=== PATIENT | female | born 1960 | race African-American/Black ===

== ENCOUNTER 2017-06-03 15:34 | Emergency (ER) | payer BC ==
[2017-06-03] MEDS ORDERED: NORMAL SALINE 1000 ML 1,000 ML IV ONE (16:49)
--- NOTE | 2017-06-03 16:50 | ER Document Report ---
ED Medical Screen (RME) - General Chief Complaint: Dizziness Stated Complaint: DIZZINESS Time Seen by Provider: 06/03/17 16:49 Notes: Patient lightheaded dizzy and nauseous since yesterday. TRAVEL OUTSIDE OF THE [place] IN LAST 30 DAYS: No - Related Data Allergies/Adverse Reactions: hydrocodone bitartrate [From Vicodin] Adverse Reaction (Verified 06/03/17 15:35) Vomiting Past Medical History - Past Medical History Cardiac Medical History: Reports: Hx Hypertension Pulmonary Medical History: Reports: Hx Bronchitis Psychiatric Medical History: Reports: Hx Depression Past Surgical History: Reports: Hx Gynecologic Surgery - tubes tied, Hx Tonsillectomy - Immunizations Hx Diphtheria, Pertussis, Tetanus Vaccination: Yes Physical Exam - Vital signs Vitals: Temp Pulse Resp BP Pulse Ox 98.2 F 91 17 104/69 98 06/03/17 15:48 06/03/17 15:48 06/03/17 15:48 06/03/17 15:48 06/03/17 15:48 Course - Vital Signs Vital signs: Temp Pulse Resp BP Pulse Ox 98.2 F 91 17 104/69 98 06/03/17 15:48 06/03/17 15:48 06/03/17 15:48 06/03/17 15:48 06/03/17 15:48
[2017-06-03 17:53] LABS: ABSOLUTE BASOPHILS # (AUTO) 0.1 10^3/uL (0.0-0.2); ABSOLUTE EOSINOPHILS # (AUTO) 0.1 10^3/uL (0.0-0.6); ABSOLUTE LYMPHOCYTES (AUTO) 3.1 10^3/uL (0.5-4.7); ABSOLUTE MONOCYTES (AUTO) 0.5 10^3/uL (0.1-1.4); ABSOLUTE NEUT (AUTO) 4.8 10^3/uL (1.7-8.2); BASOPHILS % (AUTO) 0.7 % (0-2); EOSINOPHILS % (AUTO) 1.1 % (0-6); HEMATOCRIT 43.8 % (36.0-47.0); HEMOGLOBIN 14.5 g/dL (12.0-15.5); LYMPHOCYTES % (AUTO) 36.3 % (13-45); MEAN CORPUSCULAR HEMOGLOBIN 29.5 pg (27.0-33.4); MEAN CORPUSCULAR HGB CONC 33.1 g/dL (32.0-36.0); MEAN CORPUSCULAR VOLUME 89 fl (80-97); MONOCYTES % (AUTO) 6.2 % (3-13); PLATELET COUNT 273 10^3/uL (150-450); RED BLOOD COUNT 4.91 10^6/uL (3.72-5.28); RED CELL DISTRIBUTION WIDTH 13.1 % (11.5-14.0); SEGMENTED NEUTROPHILS % (AUTO) 55.7 % (42-78); TOTAL CELLS COUNTED % (AUTO) 100 %; WHITE BLOOD COUNT 8.6 10^3/uL (4.0-10.5)
[2017-06-03] MEDS ORDERED: MECLIZINE HCL 25 MG TABLET PO ONE (19:48)
[2017-06-03] MEDS ORDERED: ONDANSETRON HCL INJ/PF 4 MG/2 ML SDV IV ONE (19:48)
--- NOTE | 2017-06-03 19:51 | ER Document Report ---
ED General - General Chief Complaint: Dizziness Stated Complaint: DIZZINESS Time Seen by Provider: 06/03/17 16:49 Notes: Patient is a 56-year-old female comes emergency department for chief complaint of a spinning sensation when she closes her eyes, she feels dizzy and gets the same spinning sensation when she sits up or stands up, she is intermittently nauseated, she vomited from it yesterday. Symptoms have been going on for 2 days. She denies headache, fever or chills, recent head injury, recent illness although she states her allergies have been bad lately. Only past medical history is hypertension, she is medicated for this. TRAVEL OUTSIDE OF THE [place] IN LAST 30 DAYS: No - Related Data Allergies/Adverse Reactions: hydrocodone bitartrate [From Vicodin] Adverse Reaction (Verified 06/03/17 15:35) Vomiting Past Medical History - General Information source: Patient - Social History Smoking Status: Never Smoker Frequency of alcohol use: None Drug Abuse: None Lives with: Family Family History: Reviewed & Not Pertinent - Past Medical History Cardiac Medical History: Reports: Hx Hypertension Pulmonary Medical History: Reports: Hx Bronchitis Psychiatric Medical History: Reports: Hx Depression Past Surgical History: Reports: Hx Gynecologic Surgery - tubes tied, Hx Tonsillectomy - Immunizations Hx Diphtheria, Pertussis, Tetanus Vaccination: Yes Review of Systems - Review of Systems Constitutional: See HPI EENT: No symptoms reported Cardiovascular: See HPI Respiratory: No symptoms reported Gastrointestinal: No symptoms reported Genitourinary: No symptoms reported Female Genitourinary: No symptoms reported Musculoskeletal: No symptoms reported Skin: No symptoms reported Hematologic/Lymphatic: No symptoms reported Neurological/Psychological: See HPI Physical Exam - Vital signs Vitals: Temp Pulse Resp BP Pulse Ox 98.2 F 91 17 104/69 98 06/03/17 15:48 06/03/17 15:48 06/03/17 15:48 06/03/17 15:48 06/03/17 15:48 Interpretation: Normal - General General appearance: Appears well, Alert In distress: None - HEENT Head: Normocephalic, Atraumatic Eyes: Normal Conjunctiva: Normal Extraocular movements intact: Yes Eyelashes: Normal Pupils: PERRL - minimal horizontal nystagmus Sinus: Normal Nasal: Normal Mouth/Lips: Normal Mucous membranes: Normal Pharynx: Normal Neck: Normal - Respiratory Respiratory status: No respiratory distress Chest status: Nontender Breath sounds: Normal. No: Decreased air movement, Wheezing - Cardiovascular Rhythm: Regular. No: Tachycardia Heart sounds: Normal auscultation, S1 appreciated, S2 appreciated Murmur: No - Abdominal Inspection: Normal Distension: No distension Bowel sounds: Normal Tenderness: Nontender Organomegaly: No organomegaly - Back Back: Normal, Nontender - Extremities General upper extremity: Normal inspection, Nontender, Normal color, Normal ROM , Normal temperature General lower extremity: Normal inspection, Nontender, Normal color, Normal ROM , Normal temperature, Normal weight bearing. No: Dequan's sign - Neurological Neuro grossly intact: Yes Cognition: Normal Orientation: AAOx4 [place] Coma Scale Eye Opening: Spontaneous [place] Coma Scale Verbal: Oriented [place] Coma Scale Motor: Obeys Commands [place] Coma Scale Total: 15 Speech: Normal Motor strength normal: LUE, RUE, LLE, RLE Sensory: Normal - Psychological Associated symptoms: Normal affect, Normal mood - Skin Skin Temperature: Warm Skin Moisture: Dry Skin Color: Normal Course - Re-evaluation Re-evalutation: On initial exam patient is well-appearing, if she makes position change she has clear imbalance and discomfort. However she can walk in a straight line without difficulty. Normal neurological exam otherwise. Minimal horizontal nystagmus. CBC and chemistry unremarkable. After meclizine, Zofran patient's symptoms almost completely resolved. She still gets a tiny bit of spinning sensation with position changes, she no longer has spinning or nausea when she closes her eyes or otherwise. She smiling, well-appearing, ambulating well. She is asking to go home. Prescribed medications, discussed follow-up and return precautions, patient states understanding and agreement. - Vital Signs Vital signs: Temp Pulse Resp BP Pulse Ox 98.6 F 67 18 124/64 100 06/03/17 22:27 06/03/17 22:27 06/03/17 22:27 06/03/17 22:27 06/03/17 22:27 - Laboratory Result Diagrams: 06/03/17 17:30 06/03/17 19:50 Laboratory results interpreted by me: 06/03/17 19:50 Chloride 108 H Discharge - Discharge Clinical Impression: Dizziness, Vertigo Condition: Stable Disposition: HOME, SELF-CARE Additional Instructions: Your EKG, laboratory workup, and monitoring show no concerning abnormality's. Your symptoms and evaluation are consistent with vertigo, take the meclizine as prescribed. Take Zofran if needed for nausea. Follow-up with primary care. Return for any concerning worsening symptoms, see additional details below. Labyrinthitis Labyrinthitis is a temporary disease of the inner ear. It's sometimes called vestibulitis. It often starts a few days after a cold or virus infection. Symptoms include vertigo (the spinning type of dizziness) or a sense of unsteadiness and nausea. The symptoms usually go away in a couple of days without any treatment. You should rest and keep your head still. The dizziness is worse if you move your head. Closing the eyes usually helps. Don't drive, work with dangerous machinery, or get up on ladders or scaffolds until a few days after the dizziness resolves. Medicine such as meclizine (Antivert, Bonine) can reduce the dizziness and nausea. Tranquilizers (such as diazepam) can suppress your sense of balance, reducing the unpleasantness of the vertigo. Call or return if you develop ear pain, loss of hearing, fever, severe vomiting, or any other new symptom. Prescriptions: Meclizine HCl [Bonine] 25 mg PO TID #24 tab.chew Ondansetron [Zofran Odt 4 mg Tablet] 1 - 2 tab PO Q4H PRN #15 tab.rapdis PRN Reason: For Nausea/Vomiting Referrals: KELSIE ALDANA MD [Primary Care Provider] - Follow up as needed
[2017-06-03 20:15] LABS: ALANINE AMINOTRANSFERASE 24 U/L (9-52); ALBUMIN 4.1 g/dL (3.5-5.0); ALKALINE PHOSPHATASE 65 U/L (38-126); ANION GAP 8 (5-19); ASPARTATE AMINO TRANSFERASE 23 U/L (14-36); BILIRUBIN,DIRECT 0.3 mg/dL (0.0-0.4); BILIRUBIN,TOTAL 0.4 mg/dL (0.2-1.3); BLOOD UREA NITROGEN 16 mg/dL (7-20); CALCIUM 10.2 mg/dL (8.4-10.2); CARBON DIOXIDE 25 mmol/L (22-30); CHLORIDE 108 mmol/L (98-107); GLUCOSE 86 mg/dL (75-110); POTASSIUM 4.6 mmol/L (3.6-5.0); SODIUM 140.7 mmol/L (137-145)
[2017-06-03] MEDS ORDERED: ONDANSETRON ODT 4 MG TAB (6 TAB/ER DISP) PO PRN (21:17)
[2017-06-03 22:28] VITALS: BP 124/64
--- NOTE | 2017-06-04 12:04 | EKG REPORT ---
SEVERITY:- NORMAL ECG - SINUS RHYTHM : Confirmed by: Eugene Chavis 04-Jun-2017 12:04:28
== END 2017-06-03 22:28 | disposition home or self-care (01) ==
LOC: ER 15:34
DX: R42 Dizziness and giddiness (principal)
CPT/HCPCS: 93005; 99284; 96361; 96374; 36415; 85025; 80053; 93010; J2405; J7030

== ENCOUNTER 2017-09-20 21:27 | Emergency (ER) | payer BC ==
[2017-09-20] MEDS ORDERED: IPRATROPIUM/ALBUTEROL 0.5-2.5 MG/3 ML AMPUL NEB ONE (22:09)
[2017-09-20] MEDS ORDERED: METHYLPREDNISOLONE INJ 125 MG/2 ML SDV IV ONE (22:09)
[2017-09-20] MEDS ORDERED: ONDANSETRON HCL INJ/PF 4 MG/2 ML SDV IV ONE (22:10)
[2017-09-20] MEDS ORDERED: OXYCODONE-ACETAMINOPHEN 5-325 MG TABLET PO ONE (22:10)
--- NOTE | 2017-09-20 22:13 | ER Document Report ---
ED Respiratory Problem - General Chief Complaint: Shortness Of Breath Stated Complaint: SHORT OF BREATH Time Seen by Provider: 09/20/17 22:00 Notes: Patient is a 57-year-old female that comes emergency department for chief complaint of shortness of breath, productive cough, and congestion for the past several days. Seen 2 days ago by primary care, placed on azithromycin and prednisone 40 mg, she has been taking both. She does smoke. She reports chills , denies fever, states she has occasional sharp left-sided chest pain that is worse with cough, feels pain in her mid upper back as well. She has a history of hypertension, tubal ligation, denies any other medical history. TRAVEL OUTSIDE OF THE [place] IN LAST 30 DAYS: No - Related Data Allergies/Adverse Reactions: amoxicillin Allergy (Verified 09/20/17 21:33) hydrocodone bitartrate [From Vicodin] Adverse Reaction (Verified 06/03/17 15:35) Vomiting Past Medical History - General Information source: Patient - Social History Smoking Status: Current Every Day Smoker Smoking Education Provided: Yes - <3 min Frequency of alcohol use: None Drug Abuse: None Lives with: Family Family History: Reviewed & Not Pertinent - Past Medical History Cardiac Medical History: Reports: Hx Hypertension Pulmonary Medical History: Reports: Hx Bronchitis Renal/ Medical History: Denies: Hx Peritoneal Dialysis Psychiatric Medical History: Reports: Hx Depression Past Surgical History: Reports: Hx Gynecologic Surgery - tubes tied, Hx Tonsillectomy - Immunizations Hx Diphtheria, Pertussis, Tetanus Vaccination: Yes Review of Systems - Review of Systems Constitutional: See HPI EENT: See HPI Cardiovascular: See HPI Respiratory: See HPI Gastrointestinal: No symptoms reported Genitourinary: No symptoms reported Female Genitourinary: No symptoms reported Musculoskeletal: See HPI Skin: No symptoms reported Hematologic/Lymphatic: No symptoms reported Neurological/Psychological: No symptoms reported Physical Exam - Vital signs Vitals: BP Pulse Ox 130/89 H 97 09/20/17 21:49 09/20/17 21:49 Interpretation: Normal - General General appearance: Appears well In distress: None - HEENT Head: Normocephalic, Atraumatic Eyes: Normal Extraocular movements intact: Yes Eyelashes: Normal Pupils: PERRL Mouth/Lips: Normal Mucous membranes: Normal Pharynx: Normal Neck: Normal - Respiratory Respiratory status: No respiratory distress. No: Respiratory distress, Labored , Retractions, Tachypnea Chest status: Nontender Breath sounds: Nonproductive cough, Wheezing Chest palpation: Normal - Cardiovascular Rhythm: Regular Heart sounds: Normal auscultation Murmur: No - Abdominal Inspection: Normal Distension: No distension Bowel sounds: Normal Tenderness: Nontender. No: Tender, Guarding Organomegaly: No organomegaly - Back Back: Normal, Nontender - Extremities General upper extremity: Normal inspection, Nontender, Normal color, Normal ROM , Normal temperature General lower extremity: Normal inspection, Nontender, Normal color, Normal ROM , Normal temperature, Normal weight bearing. No: Dequan's sign - Neurological Neuro grossly intact: Yes Cognition: Normal Orientation: AAOx4 [place] Coma Scale Eye Opening: Spontaneous Clay Coma Scale Verbal: Oriented [place] Coma Scale Motor: Obeys Commands [place] Coma Scale Total: 15 Speech: Normal Motor strength normal: LUE, RUE, LLE, RLE Sensory: Normal - Psychological Associated symptoms: Normal affect, Normal mood - Skin Skin Temperature: Warm Skin Moisture: Dry Skin Color: Normal Course - Re-evaluation Re-evalutation: Patient with a few scattered rhonchi, coarse breath sounds, and a faint wheeze. She also sounds congested. No tachypnea, hypoxia, or signs of distress. EKG shows sinus rhythm at a rate of 98, borderline Q-wave inferiorly, however this is not changed from prior. No acute findings. Appears to be pleuritic chest pain related to cough. Indeterminate initial troponin, this was cycled and there was no significant change. Chest x-ray with no noted infiltrate although patient's coughing symptoms and sputum production have worsened. After treatments wheezing resolved, patient improved on examination. Patient has already had a couple of days of steroids, low-dose, no taper, patient will be given a slight increase and then taper after discussion because she has been on prednisone for a few days already. Provided symptom management, discussed antibiotic change for better coverage, patient requests Diflucan because of yeast infections after antibiotics. Patient was discussed with Dr. Mercado, patient will be discharged with follow- up instructions and return precautions. Patient and family state understanding and agreement with plan. - Vital Signs Vital signs: Temp Pulse Resp BP Pulse Ox 98.0 F 82 20 115/67 96 09/21/17 02:45 09/21/17 02:45 09/21/17 02:45 09/21/17 02:45 09/21/17 02:45 - Laboratory Result Diagrams: 09/20/17 22:33 09/21/17 00:30 Laboratory results interpreted by me: 09/20/17 09/21/17 22:33 00:30 WBC 11.3 H Sodium 148.8 H Chloride 108 H Discharge - Discharge Clinical Impression: Productive cough, Wheezing Chest pain Qualifiers: Chest pain type: unspecified Qualified Code(s): R07.9 - Chest pain, unspecified Condition: Stable Disposition: HOME, SELF-CARE Additional Instructions: Your examination and workup are consistent with bronchitis and suspected early developing underlying pneumonia. You have been started on doxycycline for this. Stop the azithromycin. I recommend taking the prednisone taper course as prescribed. Use the syrup for cough/pain if needed. Use your inhaler if needed. Your troponin was indeterminate today, this was double checked and still indeterminate. Follow-up with primary care for additional evaluation and management. Return for any concerning symptoms including spiking fever, difficulty breathing , vomiting, passing out, worsening pain, or any other concerning or worsening symptoms. Prescriptions: Hydrocodone Bit/Homatropine [Hycodan Syrup 5-1.5 mg/5 ml Ud Cup] 5 ml PO Q4HP PRN #120 ml PRN Reason: Doxycycline Hyclate 100 mg PO BID #14 capsule Fluconazole [Diflucan] 150 mg PO ONCE PRN #1 tablet PRN Reason: Prednisone [Deltasone 10 mg Tablet] 10 mg PO ASDIR PRN #21 tablet PRN Reason: Forms: Return to Work
[2017-09-20 22:46] LABS: ABSOLUTE BASOPHILS # (AUTO) 0.1 10^3/uL (0.0-0.2); ABSOLUTE EOSINOPHILS # (AUTO) 0.1 10^3/uL (0.0-0.6); ABSOLUTE LYMPHOCYTES (AUTO) 4.2 10^3/uL (0.5-4.7); ABSOLUTE MONOCYTES (AUTO) 0.6 10^3/uL (0.1-1.4); ABSOLUTE NEUT (AUTO) 6.3 10^3/uL (1.7-8.2); BASOPHILS % (AUTO) 0.5 % (0-2); EOSINOPHILS % (AUTO) 1.2 % (0-6); HEMATOCRIT 41.8 % (36.0-47.0); HEMOGLOBIN 13.8 g/dL (12.0-15.5); LYMPHOCYTES % (AUTO) 37.3 % (13-45); MEAN CORPUSCULAR HEMOGLOBIN 29.3 pg (27.0-33.4); MEAN CORPUSCULAR HGB CONC 33.1 g/dL (32.0-36.0); MEAN CORPUSCULAR VOLUME 89 fl (80-97); MONOCYTES % (AUTO) 5.3 % (3-13); PLATELET COUNT 327 10^3/uL (150-450); RED BLOOD COUNT 4.73 10^6/uL (3.72-5.28); RED CELL DISTRIBUTION WIDTH 13.2 % (11.5-14.0); SEGMENTED NEUTROPHILS % (AUTO) 55.7 % (42-78); TOTAL CELLS COUNTED % (AUTO) 100 %; WHITE BLOOD COUNT 11.3 10^3/uL (4.0-10.5)
[2017-09-21 01:03] LABS: ALANINE AMINOTRANSFERASE 37 U/L (9-52); ALBUMIN 3.9 g/dL (3.5-5.0); ALKALINE PHOSPHATASE 66 U/L (38-126); ANION GAP 14 (5-19); ASPARTATE AMINO TRANSFERASE 26 U/L (14-36); BILIRUBIN,DIRECT 0.2 mg/dL (0.0-0.4); BILIRUBIN,TOTAL 0.2 mg/dL (0.2-1.3); BLOOD UREA NITROGEN 20 mg/dL (7-20); CALCIUM 10.1 mg/dL (8.4-10.2); CARBON DIOXIDE 27 mmol/L (22-30); CHLORIDE 108 mmol/L (98-107); GLUCOSE 105 mg/dL (75-110); POTASSIUM 3.9 mmol/L (3.6-5.0); SODIUM 148.8 mmol/L (137-145); TOTAL PROTEIN 6.9 g/dL (6.3-8.2)
--- NOTE | 2017-09-21 02:20 | RADIOLOGY REPORT (SQ) ---
EXAM DESCRIPTION: Chest two views CLINICAL HISTORY: 57 years, Female, productive cough, chills COMPARISON: None. NUMBER OF VIEWS: Two TECHNIQUE: Two views of the chest LIMITATIONS: None. FINDINGS: The lungs are clear. The heart is normal in size. There is no pneumothorax or pleural effusion. There is no acute fracture IMPRESSION: No acute cardiopulmonary abnormality 2010 [facility] [employer]- All Rights Reserved
[2017-09-21] MEDS ORDERED: DOXYCYCLINE HYCLATE 100 MG TABLET PO ONE (02:31)
[2017-09-21 02:46] VITALS: BP 115/67
--- NOTE | 2017-09-21 06:07 | EKG REPORT ---
SEVERITY:- BORDERLINE ECG - SINUS RHYTHM BORDERLINE INFERIOR Q WAVES : Confirmed by: Denys Perez MD 21-Sep-2017 06:06:09
== END 2017-09-21 02:49 | disposition home or self-care (01) ==
LOC: ER 21:27
DX: R05 Cough (principal); R06.2 Wheezing; R06.02 Shortness of breath; F17.200 Nicotine dependence, unspecified, uncomplicated; I10 Essential (primary) hypertension; Z88.0 Allergy status to penicillin; Z98.51 Tubal ligation status
CPT/HCPCS: 93005; 94640; 99285; 96374; 96375; 36415; 85025; 80053; 84484; 71046; 93010; J2930; J2405; J7620

== ENCOUNTER 2018-02-07 18:03 | Inpatient (IN) | payer BC ==
[2018-02-07] MEDS ORDERED: IPRATROPIUM/ALBUTEROL 0.5-2.5 MG/3 ML AMPUL NEB ONE ×2 (18:19→20:15)
--- NOTE | 2018-02-07 18:21 | ER Document Report ---
ED Medical Screen (RME) - General Chief Complaint: Breathing Difficulty Stated Complaint: DIFFICULTY BREATHING Time Seen by Provider: 02/07/18 18:16 Mode of Arrival: Ambulatory Information source: Patient Notes: 57-year-old female with a history of hypertension who presents to the emergency room with productive cough, shortness of breath, wheezing and chills since last night. TRAVEL OUTSIDE OF THE [place] IN LAST 30 DAYS: No - Related Data Allergies/Adverse Reactions: amoxicillin Allergy (Verified 02/07/18 18:06) hydrocodone bitartrate [From Vicodin] Adverse Reaction (Verified 02/07/18 18:06) Vomiting Past Medical History - Past Medical History Cardiac Medical History: Reports: Hx Hypertension Pulmonary Medical History: Reports: Hx Bronchitis Renal/ Medical History: Denies: Hx Peritoneal Dialysis Psychiatric Medical History: Reports: Hx Depression Past Surgical History: Reports: Hx Gynecologic Surgery - tubes tied, Hx Tonsillectomy, Hx Tubal Ligation - Immunizations Hx Diphtheria, Pertussis, Tetanus Vaccination: Yes Physical Exam - Vital signs Vitals: Temp Pulse Resp BP Pulse Ox 99.7 F 116 H 22 H 155/82 H 90 L 02/07/18 18:08 02/07/18 18:08 02/07/18 18:08 02/07/18 18:08 02/07/18 18:08 Course - Vital Signs Vital signs: Temp Pulse Resp BP Pulse Ox 99.7 F 116 H 22 H 155/82 H 90 L 02/07/18 18:08 02/07/18 18:08 02/07/18 18:08 02/07/18 18:08 02/07/18 18:08 Doctor's Discharge - Discharge Referrals: KELSIE ALDANA MD [Primary Care Provider] - Follow up as needed
[2018-02-07] MEDS ORDERED: METHYLPREDNISOLONE INJ 125 MG/2 ML SDV IV ONE (18:49)
[2018-02-07 19:00] LABS: ABSOLUTE LYMPHOCYTES (AUTO) 1.4 10^3/uL (0.5-4.7); ABSOLUTE MONOCYTES (AUTO) 0.7 10^3/uL (0.1-1.4); ABSOLUTE NEUT (AUTO) 11.4 10^3/uL (1.7-8.2); BASOPHILS % (AUTO) 0.3 % (0-2); EOSINOPHILS % (AUTO) 0.1 % (0-6); HEMATOCRIT 39.1 % (36.0-47.0); HEMOGLOBIN 13.1 g/dL (12.0-15.5); LYMPHOCYTES % (AUTO) 10.2 % (13-45); MEAN CORPUSCULAR HEMOGLOBIN 29.5 pg (27.0-33.4); MEAN CORPUSCULAR HGB CONC 33.5 g/dL (32.0-36.0); MEAN CORPUSCULAR VOLUME 88 fl (80-97); MONOCYTES % (AUTO) 5.3 % (3-13); PLATELET COUNT 259 10^3/uL (150-450); RED BLOOD COUNT 4.44 10^6/uL (3.72-5.28); RED CELL DISTRIBUTION WIDTH 13.2 % (11.5-14.0); SEGMENTED NEUTROPHILS % (AUTO) 84.1 % (42-78); TOTAL CELLS COUNTED % (AUTO) 100 %; WHITE BLOOD COUNT 13.6 10^3/uL (4.0-10.5)
[2018-02-07] MEDS ORDERED: LEVOFLOXACIN 750 MG/D5W RTU 750 MG/150 ML RTUPB IV ONE (19:03)
[2018-02-07] MEDS ORDERED: RINGERS SOLUTION,LACTATED 1,000 ML IV ONE (19:03)
--- NOTE | 2018-02-07 19:04 | ER Document Report ---
ED General - General Chief Complaint: Breathing Difficulty Stated Complaint: DIFFICULTY BREATHING Time Seen by Provider: 02/07/18 18:16 Mode of Arrival: Ambulatory Notes: Patient is a 57-year-old female with a past medical history of essential hypertension who presents with 24 hours of fever, cough, shortness of breath and body aches. The patient reports that symptoms started gradually and have been constant since that time. She has tried Tylenol with improvement of her symptoms. She does note however that this has not affected her shortness of breath. She describes shortness of breath being constant, worsened with exertion. She has had cough without sputum production. No history of similar symptoms in the past. She has not seen her general doctor regarding today's concerns. No known sick contacts. TRAVEL OUTSIDE OF THE [place] IN LAST 30 DAYS: No - Related Data Allergies/Adverse Reactions: amoxicillin Allergy (Verified 02/07/18 18:06) hydrocodone bitartrate [From Vicodin] Adverse Reaction (Verified 02/07/18 18:06) Vomiting Past Medical History - General Information source: Patient - Social History Smoking Status: Current Every Day Smoker Frequency of alcohol use: None Drug Abuse: None Lives with: Spouse/Significant other Family History: Reviewed & Not Pertinent Patient has suicidal ideation: No Patient has homicidal ideation: No - Past Medical History Cardiac Medical History: Reports: Hx Hypertension Pulmonary Medical History: Reports: Hx Bronchitis Renal/ Medical History: Denies: Hx Peritoneal Dialysis Psychiatric Medical History: Reports: Hx Depression Past Surgical History: Reports: Hx Gynecologic Surgery - tubes tied, Hx Tonsillectomy, Hx Tubal Ligation - Immunizations Hx Diphtheria, Pertussis, Tetanus Vaccination: Yes Review of Systems - Review of Systems Notes: Constitutional: Positive for fever. HENT: Negative for sore throat. Eyes: Negative for visual changes. Cardiovascular: Negative for chest pain. Respiratory: Positive for shortness of breath and cough Gastrointestinal: Negative for abdominal pain, vomiting or diarrhea. Genitourinary: Negative for dysuria. Musculoskeletal: Negative for back pain. Skin: Negative for rash. Neurological: Negative for headaches, weakness or numbness. 10 point ROS negative except as marked above and in HPI. Physical Exam - Vital signs Vitals: Temp Pulse Resp BP Pulse Ox 99.7 F 116 H 22 H 155/82 H 90 L 02/07/18 18:08 02/07/18 18:08 02/07/18 18:08 02/07/18 18:08 02/07/18 18:08 Interpretation: Tachycardic, Hypoxic, Tachypneic Notes: PHYSICAL EXAMINATION: GENERAL: Appears moderately unwell but in no acute distress HEAD: Atraumatic, normocephalic. EYES: Pupils equal round and reactive to light, extraocular movements intact, sclera anicteric, conjunctiva are normal. ENT: nares patent, oropharynx clear without exudates. Mild dry mucous membranes. NECK: Normal range of motion, supple without lymphadenopathy LUNGS: Coarse breath sounds in all lung [place], scattered rales at the bases bilaterally HEART: Regular tachycardia without murmurs ABDOMEN: Soft, nontender, normoactive bowel sounds. No guarding, no rebound. No masses appreciated. EXTREMITIES: Normal range of motion, no pitting or edema. No cyanosis. NEUROLOGICAL: No focal neurological deficits. Moves all extremities spontaneously and on command. PSYCH: Normal mood, normal affect. SKIN: Warm, Dry, normal turgor, no rashes or lesions noted. Course - Re-evaluation Re-evalutation: 02/07/18 19:03 Patient presents mildly tachypneic, hypoxic, rattling cough. Examination shows scattered coarse breath sounds and rhonchi throughout. Patient has had fever and constitutional symptoms at home worrisome for a atypical community-acquired pneumonia. Chest x-ray appears to show a similar pattern. Labs are pending. Will begin IV fluids, nebs, levofloxacin. Low clinical suspicion for an acute pulmonary embolus, pulmonary edema. 02/07/18 20:25 Patient's work of breathing does remain moderately elevated although without distress. Labs show moderate leukocyte ptosis, otherwise unremarkable. I have discussed this case with Dr. Calabrese given the patient's oxygen dependence and he has a sensation for admission. - Vital Signs Vital signs: Temp Pulse Resp BP Pulse Ox 99.7 F 86 18 125/77 94 02/07/18 18:08 02/08/18 02:08 02/08/18 02:00 02/08/18 02:00 02/08/18 02:00 - Laboratory Result Diagrams: 02/07/18 18:50 02/07/18 18:50 Laboratory results interpreted by me: 02/07/18 02/07/18 02/07/18 18:50 18:50 20:02 WBC 13.6 H Seg Neutrophils % 84.1 H Lymphocytes % 10.2 L Absolute Neutrophils 11.4 H Lactic Acid 2.4 H Calcium 10.4 H - Diagnostic Test Radiology reviewed: Image reviewed, Reports reviewed Radiology results interpreted by me: 02/07/18 20:25 Chest x-ray: Patchy infiltrates at the bases bilaterally consistent with an atypical community acquired pneumonia Discharge - Discharge Clinical Impression: Hypoxia, Atypical pneumonia Sepsis Qualifiers: Sepsis type: sepsis due to unspecified organism Qualified Code(s): A41.9 - Sepsis, unspecified organism Condition: Fair Disposition: ADMITTED INPATIENT Admitting Provider: Hospitalist Unit Admitted: Telemetry
--- NOTE | 2018-02-07 19:19 | RADIOLOGY REPORT (SQ) ---
EXAM DESCRIPTION: CHEST 2 VIEWS COMPLETED DATE/TIME: 02/07/2018 7:00 pm REASON FOR STUDY: productive cough COMPARISON: 09/20/2017 TECHNIQUE: Frontal and lateral radiographic views of the chest acquired. NUMBER OF VIEWS: Two view. LIMITATIONS: None. FINDINGS: LUNGS AND PLEURA: No pneumothorax. No consolidation or pleural effusion. MEDIASTINUM AND HILAR STRUCTURES: Stable. HEART AND VASCULAR STRUCTURES: Stable. BONES: No acute findings. HARDWARE: None in the chest. OTHER: No other significant finding. IMPRESSION: NO ACUTE FINDINGS. TECHNICAL DOCUMENTATION: JOB ID: [id number] [place]-72 2010 [employer]- All Rights Reserved Reading location - IP/workstation name: [email or web address]
[2018-02-07 19:24] LABS: ALANINE AMINOTRANSFERASE 23 U/L (9-52); ALBUMIN 4.4 g/dL (3.5-5.0); ALKALINE PHOSPHATASE 68 U/L (38-126); ANION GAP 11 (5-19); ASPARTATE AMINO TRANSFERASE 16 U/L (14-36); BILIRUBIN,DIRECT 0.3 mg/dL (0.0-0.4); BILIRUBIN,TOTAL 0.5 mg/dL (0.2-1.3); BLOOD UREA NITROGEN 12 mg/dL (7-20); CALCIUM 10.4 mg/dL (8.4-10.2); CARBON DIOXIDE 24 mmol/L (22-30); CHLORIDE 105 mmol/L (98-107); GLUCOSE 102 mg/dL (75-110); POTASSIUM 4.1 mmol/L (3.6-5.0); SODIUM 140.4 mmol/L (137-145); TOTAL PROTEIN 7.6 g/dL (6.3-8.2)
[2018-02-07 19:36] LABS: NT PRO BNP 40 pg/mL (5-900)
[2018-02-07 19:40] LABS: TROPONIN I < 0.012 ng/mL
[2018-02-07 20:20] LABS: VENOUS BLOOD BASE EXCESS -2.4 mmol/L; VENOUS BLOOD HCO3 24.6 mmol/L (20-32); VENOUS BLOOD PCO2 51.1 mmHg (35-63); VENOUS BLOOD PH 7.3 (7.30-7.42)
[2018-02-07] MEDS ORDERED: HYDRALAZINE HCL INJ/PF 20 MG/1 ML SDV IV PRN (20:25)
[2018-02-07] MEDS ORDERED: IPRATROPIUM/ALBUTEROL 0.5-2.5 MG/3 ML AMPUL NEB PRN (20:26)
[2018-02-07] MEDS ORDERED: ACETAMINOPHEN 325 MG TABLET PO PRN (20:26)
[2018-02-07] MEDS ORDERED: GUAIFENESIN SYRP 200 MG/10 ML UDC PO PRN (20:26)
[2018-02-07] MEDS ORDERED: KETOROLAC TROMETHAMINE INJ/PF 30 MG/1 ML SDV IV ONE (20:28)
[2018-02-07] MEDS: CHLORPHENIRAMINE MALEATE 4 MG TABLET PO SCH (21:07)
[2018-02-07] MEDS: IPRATROPIUM/ALBUTEROL 0.5-2.5 MG/3 ML AMPUL NEB SCH (21:07)
[2018-02-07] MEDS ORDERED: HEPARIN SOD (PORCINE) 5,000 UNIT/ML 1 ML SYRINGE SUBCUT SCH (22:00)
[2018-02-08] MEDS: IPRATROPIUM/ALBUTEROL 0.5-2.5 MG/3 ML AMPUL NEB SCH ×4 (02:58→20:40)
[2018-02-08] MEDS ORDERED: FLUTICASONE NASAL SPRAY 50 MCG/SPRY 120 SPRAY/16 GM ONE (03:04)
[2018-02-08] MEDS ORDERED: CHLORPHENIRAMINE MALEATE 4 MG TABLET ONE (03:04)
[2018-02-08] MEDS: CHLORPHENIRAMINE MALEATE 4 MG TABLET PO SCH ×3 (03:29→14:54)
[2018-02-08] MEDS: FLUTICASONE NASAL SPRAY 50 MCG/SPRY 120 SPRAY/16 GM NASL SCH ×3 (03:30→22:07)
[2018-02-08] MEDS: HEPARIN SOD (PORCINE) 5,000 UNIT/ML 1 ML SYRINGE SUBCUT SCH ×4 (03:31→22:22)
--- NOTE | 2018-02-08 05:29 | PDOC H&P ---
History of Present Illness Admission Date/PCP: 02/07/18 20:49 Patient complains of: Shortness of breath History of Present Illness: SOFIE BULLOCK is a 57 year old female with a past medical history of chronic maxillary sinusitis, hypertension and tobacco. patient presents with 36 hours of shortness of breath, fever, copious, productive cough of yellow sputum. In the emergency room she is found to have leukocytosis, tachycardia and shortness of breath with productive cough. She admits to postnasal drip, denies recent antibiotics. She receives albuterol, Atrovent, antibiotics and referred to the hospitalist for admission. She admits to several episodes of pneumonia in the past. Denies infectious contacts, GERD and sore throat Past Medical History Cardiac Medical History: Reports: Hypertension Pulmonary Medical History: Reports: Bronchitis, Other - Chronic maxillary sinusitis Psychiatric Medical History: Reports: Depression, Tobacco Dependency Past Surgical History Past Surgical History: Reports: Tonsillectomy, Tubal Ligation Social History Information Source: Patient Lives with: Spouse/Significant other Smoking Status: Current Every Day Smoker Cigarettes Packs Per Day: 5 Number of Years Smokin Last Time Smoked: t-1 Frequency of Alcohol Use: Rare Hx Recreational Drug Use: No Hx Prescription Drug Abuse: No - Advance Directive Resuscitation Status: Full Code Family History Family History: Hypertension Parental Family History Reviewed: Yes Children Family History Reviewed: Yes Sibling(s) Family History Reviewed.: Yes Medication/Allergy Home Medications: Lisinopril/Hydrochlorothiazide [Lisinopril-Hctz 20-12.5 mg Tab] 1 each PO DAILY 06/04/14 Allergies/Adverse Reactions: amoxicillin Allergy (Verified 02/07/18 18:06) hydrocodone bitartrate [From Vicodin] Adverse Reaction (Verified 02/07/18 18:06) Vomiting Review of Systems Constitutional: PRESENT: as per HPI, chills, fatigue, fever(s) Eyes: ABSENT: visual disturbances Ears: ABSENT: hearing changes Cardiovascular: PRESENT: dyspnea on exertion, orthropnea. ABSENT: chest pain, edema, palpitations Respiratory: PRESENT: as per HPI, cough, dyspnea, sputum. ABSENT: hemoptysis Gastrointestinal: ABSENT: abdominal pain, constipation, diarrhea, hematemesis, hematochezia, nausea, vomiting Genitourinary: ABSENT: dysuria, hematuria Musculoskeletal: ABSENT: joint swelling Integumentary: ABSENT: rash, wounds Neurological: ABSENT: abnormal gait, abnormal speech, confusion, dizziness, focal weakness, syncope Psychiatric: ABSENT: anxiety, depression, homidical ideation, suicidal ideation Endocrine: ABSENT: cold intolerance, heat intolerance, polydipsia, polyuria Hematologic/Lymphatic: ABSENT: easy bleeding, easy bruising Physical Exam Vital Signs: Temp Pulse Resp BP Pulse Ox 97.7 F 90 24 H 114/64 91 L 02/08/18 05:14 02/08/18 05:14 02/08/18 05:14 02/08/18 05:14 02/08/18 05:14 Pulse Oximeter Continuous Start: 02/07/18 20: 26 Freq: RTQ4 Status: Active Document 02/08/18 04:00 [facility] (Rec: 02/08/18 04:57 [facility] [id number]) Pulse Oximetry Assessment Oxygen Saturation (92-100) 94 Oxygen Flow Rate (L/min) 2 Oxygen Delivery Method Nasal Cannula Fraction of Inspired Oxygen (FIO2) 28 Equipment Usage Equipment in Use Continuous Pulse Oximeter 24 Hour Charge Charge Now Continuous SpO2 Machine # 8 Intake & Output 02/06/18 02/07/18 02/08/18 11:59 11:59 11:59 Intake Total 1150 Balance 1150 Weight 76 kg General appearance: PRESENT: cooperative, mild distress. ABSENT: disheveled, severe distress Head exam: PRESENT: atraumatic, normocephalic Eye exam: PRESENT: conjunctiva pink, EOMI, PERRLA. ABSENT: scleral icterus Ear exam: PRESENT: normal external ear exam Mouth exam: PRESENT: moist, tongue midline Throat exam: PRESENT: post pharyngeal erythema. ABSENT: tonsillar erythema, tonsillar exudate Neck exam: ABSENT: carotid bruit, JVD, lymphadenopathy, thyromegaly Respiratory exam: PRESENT: accessory muscle use, prolonged expiratory phas, retraction, rhonchi, symmetrical, tachypnea. ABSENT: rales, wheezes Cardiovascular exam: PRESENT: +S1, +S2, tachycardia. ABSENT: gallop, rubs Pulses: PRESENT: normal dorsalis pedis pul Vascular exam: PRESENT: normal capillary refill GI/Abdominal exam: PRESENT: normal bowel sounds, soft. ABSENT: distended, guarding, mass, organolmegaly, rebound, tenderness Rectal exam: PRESENT: deferred Extremities exam: PRESENT: full ROM. ABSENT: calf tenderness, clubbing, pedal edema Neurological exam: PRESENT: alert, awake, oriented to person, oriented to place , oriented to time, oriented to situation, CN II-XII grossly intact. ABSENT: motor sensory deficit Skin exam: PRESENT: dry, intact, warm. ABSENT: cyanosis, rash Results Laboratory Results: 02/07/18 23:58 Lactic Acid 1.9 Impressions: Chest X-Ray 02/07/18 18:20 IMPRESSION: NO ACUTE FINDINGS. Assessment & Plan - Diagnosis (1) Acute maxillary sinusitis Qualifiers: Recurrence: recurrent Qualified Code(s): J01.01 - Acute recurrent maxillary sinusitis Is this a current diagnosis for this admission?: Yes Plan: Chlorpheniramine, Flonase, empiric antibiotics, follow-up CBC and sputum culture. (2) Atypical pneumonia Is this a current diagnosis for this admission?: Yes Plan: Pneumonia care set. Follow-up CBC, blood and sputum culture (3) Sepsis Qualifiers: Sepsis type: sepsis due to unspecified organism Qualified Code(s): A41.9 - Sepsis, unspecified organism Is this a current diagnosis for this admission?: Yes Plan: Secondary to #1 and 2. IV fluid challenge, empiric antibiotics follow-up (4) Hypoxia Is this a current diagnosis for this admission?: Yes Plan: Secondary to #1, supplemental oxygen - Time Time Spent: 50 to 70 Minutes - Inpatient Certification Medical Necessity: Need Close Monitoring Due to Risk of Patient Decompensation
[2018-02-08 06:16] LABS: ABSOLUTE LYMPHOCYTES (AUTO) 0.6 10^3/uL (0.5-4.7); ABSOLUTE MONOCYTES (AUTO) 0.1 10^3/uL (0.1-1.4); BASOPHILS % (AUTO) 0.1 % (0-2); HEMATOCRIT 37.8 % (36.0-47.0); HEMOGLOBIN 12.7 g/dL (12.0-15.5); LYMPHOCYTES % (AUTO) 6.7 % (13-45); MEAN CORPUSCULAR HEMOGLOBIN 29.7 pg (27.0-33.4); MEAN CORPUSCULAR HGB CONC 33.6 g/dL (32.0-36.0); MEAN CORPUSCULAR VOLUME 88 fl (80-97); MONOCYTES % (AUTO) 1.5 % (3-13); PLATELET COUNT 233 10^3/uL (150-450); RED BLOOD COUNT 4.27 10^6/uL (3.72-5.28); RED CELL DISTRIBUTION WIDTH 13.2 % (11.5-14.0); SEGMENTED NEUTROPHILS % (AUTO) 91.7 % (42-78); TOTAL CELLS COUNTED % (AUTO) 100 %; WHITE BLOOD COUNT 8.8 10^3/uL (4.0-10.5)
[2018-02-08 06:40] LABS: ANION GAP 12 (5-19); BLOOD UREA NITROGEN 15 mg/dL (7-20); CALCIUM 10.4 mg/dL (8.4-10.2); CARBON DIOXIDE 22 mmol/L (22-30); CHLORIDE 108 mmol/L (98-107); GLUCOSE 156 mg/dL (75-110); POTASSIUM 4.5 mmol/L (3.6-5.0); SODIUM 142.4 mmol/L (137-145)
[2018-02-08] MEDS: LEVOFLOXACIN 750 MG/D5W RTU 750 MG/150 ML RTUPB IV SCH (09:38)
--- NOTE | 2018-02-08 09:50 | PDOC PROGRESS REPORT ---
Subjective Progress Note for:: 02/08/18 Subjective:: Patient says she is slightly improving She is still on oxygen and still wheezing And tells me that her daughter moved in with her cat recently and this is when her symptoms started Chest x-ray was negative Reason For Visit: PNEUMONIA Physical Exam Vital Signs: Temp Pulse Resp BP Pulse Ox 98.0 F 85 20 125/80 95 02/08/18 07:36 02/08/18 08:52 02/08/18 08:52 02/08/18 07:36 02/08/18 08:52 Pulse Oximeter Continuous Start: 02/07/18 20: 26 Freq: RTQ4 Status: Active Document 02/08/18 08:52 TPO (Rec: 02/08/18 09:09 TPO [id number]) Pulse Oximetry Assessment Oxygen Saturation (92-100) 95 Oxygen Flow Rate (L/min) 2 Oxygen Delivery Method Nasal Cannula Fraction of Inspired Oxygen (FIO2) 28 Equipment Usage Equipment in Use Continuous SpO2 Machine # 8 Intake & Output 02/07/18 02/08/18 02/09/18 06:59 06:59 06:59 Intake Total 1150 Output Total 0 Balance 1150 Weight 167 lb 8.821 oz General appearance: PRESENT: no acute distress, well-developed, well-nourished Head exam: PRESENT: atraumatic, normocephalic Eye exam: PRESENT: conjunctiva pink, EOMI, PERRLA. ABSENT: scleral icterus Ear exam: PRESENT: normal external ear exam Mouth exam: PRESENT: moist, tongue midline Neck exam: ABSENT: carotid bruit, JVD, lymphadenopathy, thyromegaly Respiratory exam: PRESENT: clear to auscultation yazan, rhonchi, wheezes. ABSENT : rales Cardiovascular exam: PRESENT: RRR. ABSENT: diastolic murmur, rubs, systolic murmur Pulses: PRESENT: normal dorsalis pedis pul Vascular exam: PRESENT: normal capillary refill GI/Abdominal exam: PRESENT: normal bowel sounds, soft. ABSENT: distended, guarding, mass, organolmegaly, rebound, tenderness Rectal exam: PRESENT: deferred Extremities exam: PRESENT: full ROM. ABSENT: calf tenderness, clubbing, pedal edema Neurological exam: PRESENT: alert, awake, oriented to person, oriented to place , oriented to time, oriented to situation, CN II-XII grossly intact. ABSENT: motor sensory deficit Psychiatric exam: PRESENT: appropriate affect, normal mood. ABSENT: homicidal ideation, suicidal ideation Results Laboratory Results: 02/08/18 05:34 02/08/18 05:34 02/07/18 02/08/18 02/08/18 23:58 05:34 05:34 WBC 8.8 RBC 4.27 Hgb 12.7 Hct 37.8 MCV 88 MCH 29.7 MCHC 33.6 RDW 13.2 Plt Count 233 Seg Neutrophils % 91.7 H Lymphocytes % 6.7 L Monocytes % 1.5 L Eosinophils % 0.0 Basophils % 0.1 Absolute Neutrophils 8.0 Absolute Lymphocytes 0.6 Absolute Monocytes 0.1 Absolute Eosinophils 0.0 Absolute Basophils 0.0 Sodium 142.4 Potassium 4.5 Chloride 108 H Carbon Dioxide 22 Anion Gap 12 BUN 15 Creatinine 0.72 Est GFR ( Amer) > 60 Est GFR (Non-Af Amer) > 60 Glucose 156 H Lactic Acid 1.9 Calcium 10.4 H Impressions: Chest X-Ray 02/07/18 18:20 IMPRESSION: NO ACUTE FINDINGS. Assessment & Plan - Diagnosis (1) Hypertension Is this a current diagnosis for this admission?: Yes Plan: Continue hydralazine Monitor blood pressure (2) COPD exacerbation Is this a current diagnosis for this admission?: Yes Plan: Start prednisone 40 mg daily Continue DuoNeb every 4 hours continue Mucinex Continue oxygen as needed (3) Acute bronchitis Is this a current diagnosis for this admission?: Yes Plan: Continue empiric antibiotic
[2018-02-08] MEDS: PREDNISONE 20 MG TABLET PO SCH (09:55)
[2018-02-09] MEDS: IPRATROPIUM/ALBUTEROL 0.5-2.5 MG/3 ML AMPUL NEB SCH ×2 (02:18→08:48)
[2018-02-09] MEDS: HEPARIN SOD (PORCINE) 5,000 UNIT/ML 1 ML SYRINGE SUBCUT SCH (05:17)
[2018-02-09 05:25] LABS: ABSOLUTE LYMPHOCYTES (AUTO) 2.3 10^3/uL (0.5-4.7); ABSOLUTE MONOCYTES (AUTO) 0.9 10^3/uL (0.1-1.4); ABSOLUTE NEUT (AUTO) 8.5 10^3/uL (1.7-8.2); BASOPHILS % (AUTO) 0.1 % (0-2); EOSINOPHILS % (AUTO) 0.1 % (0-6); HEMATOCRIT 36.9 % (36.0-47.0); HEMOGLOBIN 12.2 g/dL (12.0-15.5); LYMPHOCYTES % (AUTO) 19.2 % (13-45); MEAN CORPUSCULAR HEMOGLOBIN 29.2 pg (27.0-33.4); MEAN CORPUSCULAR VOLUME 89 fl (80-97); PLATELET COUNT 224 10^3/uL (150-450); RED BLOOD COUNT 4.17 10^6/uL (3.72-5.28); RED CELL DISTRIBUTION WIDTH 13.2 % (11.5-14.0); SEGMENTED NEUTROPHILS % (AUTO) 72.6 % (42-78); TOTAL CELLS COUNTED % (AUTO) 100 %; WHITE BLOOD COUNT 11.7 10^3/uL (4.0-10.5)
[2018-02-09 05:49] LABS: ANION GAP 8 (5-19); BLOOD UREA NITROGEN 15 mg/dL (7-20); CALCIUM 10.1 mg/dL (8.4-10.2); CARBON DIOXIDE 26 mmol/L (22-30); CHLORIDE 109 mmol/L (98-107); GLUCOSE 144 mg/dL (75-110); POTASSIUM 3.8 mmol/L (3.6-5.0); SODIUM 142.5 mmol/L (137-145)
[2018-02-09] MEDS: PREDNISONE 20 MG TABLET PO SCH (09:21)
[2018-02-09] MEDS: FLUTICASONE NASAL SPRAY 50 MCG/SPRY 120 SPRAY/16 GM NASL SCH ×2 (09:21→21:41)
[2018-02-09] MEDS: LEVOFLOXACIN 750 MG/D5W RTU 750 MG/150 ML RTUPB IV SCH (09:21)
[2018-02-09] MEDS ORDERED: ALBUTEROL SULFATE 0.083% NEB 2.5 MG/3 ML AMPUL NEB PRN (12:30)
[2018-02-09] MEDS ORDERED: METHYLPREDNISOLONE INJ 125 MG/2 ML SDV IV ONE (12:33)
--- NOTE | 2018-02-09 12:53 | PDOC PROGRESS REPORT ---
Subjective Progress Note for:: 02/09/18 Subjective:: SOFIE BULLOCK is a 57 year old female who presented with a 36 hour history of shortness of breath, fever, productive cough with copious amounts of yellow sputum. In the emergency room she was found to have leukocytosis, tachycardia and shortness of breath with a productive cough. She admitted to postnasal drip , but denied recent antibiotics. She received albuterol, Atrovent and antibiotics prior to admission in the ER. 02/09/18: Today Sofie is feeling better but still not breathing easily. Would like to be more active and ambulate and she feels that would help her some and she thinks that the breathing treatments also help. She will be given a larger dose of steroids utilizing 125 milligrams dosage of Solu-Medrol IV x1 today and her pulmonary toilet will be adjusted to levalbuterol and ipratropium every 8 hours with as needed albuterol every hour. We will discontinue her anticoagulant medication for VTE prophylaxis since she is willing to ambulate. Reason For Visit: PNEUMONIA Physical Exam Vital Signs: Temp Pulse Resp BP Pulse Ox 97.6 F 72 20 105/69 99 02/09/18 11:46 02/09/18 11:46 02/09/18 11:46 02/09/18 11:46 02/09/18 11:46 Pulse Oximeter Continuous Start: 02/07/18 20: 26 Freq: RTQ4 Status: Active Document 02/09/18 11:44 [facility] (Rec: 02/09/18 11:44 [facility] [id number]) Pulse Oximetry Assessment Oxygen Saturation (92-100) 98 Oxygen Flow Rate (L/min) 2 Oxygen Delivery Method Nasal Cannula Equipment Usage Equipment in Use Continuous SpO2 Machine # [id number] Intake & Output 02/08/18 02/09/18 02/10/18 06:59 06:59 06:59 Intake Total 1150 1636 372 Output Total 0 800 Balance 1150 836 372 Weight 76 kg 78.4 kg General appearance: PRESENT: cooperative, mild distress - Mild respiratory distress with slightly labored breathing Head exam: PRESENT: atraumatic, normocephalic Eye exam: PRESENT: conjunctiva pink, EOMI. ABSENT: conjunctival injection, nystagmus, periorbital swelling, scleral icterus Ear exam: PRESENT: normal external ear exam. ABSENT: bleeding, drainage Mouth exam: PRESENT: moist, neck supple, tongue midline Neck exam: PRESENT: full ROM. ABSENT: JVD, thyromegaly, tracheal deviation Respiratory exam: PRESENT: accessory muscle use - Minimal accessory muscle use is noted and is associated with slightly increased labored breathing, prolonged expiratory phas - Mildly prolonged expiratory phase is noted on auscultation, symmetrical, wheezes - Mild end expiratory wheezing is noted in all [place]. ABSENT: rales, retraction, rhonchi Cardiovascular exam: PRESENT: RRR. ABSENT: clicks, diastolic murmur, gallop, rubs, systolic murmur Vascular exam: PRESENT: normal capillary refill. ABSENT: pallor GI/Abdominal exam: PRESENT: normal bowel sounds, soft Rectal exam: PRESENT: deferred Extremities exam: ABSENT: joint swelling, pedal edema Musculoskeletal exam: PRESENT: full ROM, normal inspection Neurological exam: PRESENT: alert, oriented to person, oriented to place, oriented to time, oriented to situation, CN II-XII grossly intact. ABSENT: motor sensory deficit Psychiatric exam: PRESENT: appropriate affect, normal mood Skin exam: ABSENT: jaundice, rash, urticaria Results Laboratory Results: 02/09/18 05:11 02/09/18 05:11 02/09/18 02/09/18 05:11 05:11 WBC 11.7 H RBC 4.17 Hgb 12.2 Hct 36.9 MCV 89 MCH 29.2 MCHC 33.0 RDW 13.2 Plt Count 224 Seg Neutrophils % 72.6 Lymphocytes % 19.2 Monocytes % 8.0 Eosinophils % 0.1 Basophils % 0.1 Absolute Neutrophils 8.5 H Absolute Lymphocytes 2.3 Absolute Monocytes 0.9 Absolute Eosinophils 0.0 Absolute Basophils 0.0 Sodium 142.5 Potassium 3.8 Chloride 109 H Carbon Dioxide 26 Anion Gap 8 BUN 15 Creatinine 0.60 Est GFR ( Amer) > 60 Est GFR (Non-Af Amer) > 60 Glucose 144 H Calcium 10.1 Impressions: Chest X-Ray 02/07/18 18:20 IMPRESSION: NO ACUTE FINDINGS. Assessment & Plan - Diagnosis (1) COPD exacerbation Is this a current diagnosis for this admission?: Yes Plan: Patient is noted to have an improved exam from that described on her initial hospital valuation. She also states that she is feeling better and therefore we will adjust her pulmonary toilet to continue her improvement but to reduce the frequency of treatments from 4 times a day to 3 times a day she may still use as needed treatment should she develop acute wheezing or dyspnea. She will continue on her oral antibiotic for a total of 4 doses and she will receive a one-time dose of Solu-Medrol today 125 mg IV in addition to her 40 mg of prednisone she is receiving daily. (2) Venous thromboembolism (VTE) prophylaxis not tolerated by patient Is this a current diagnosis for this admission?: Yes Plan: Nini does not like the subcutaneous injections that she is receiving for her VTE prophylaxis. She is asked if she may discontinue receiving injections if she is active walking around at least every few hours, and I have ensured her that activity is a much better insurance against DVT than any prophylactic medication. We will discontinue her subcu injections forth with. - Time Time Spent with patient: 35 or more minutes Medications reviewed and adjusted accordingly: Yes Anticipated discharge: Home Within: within 72 hours
[2018-02-09] MEDS ORDERED: METHYLPREDNISOLONE INJ 125 MG/2 ML SDV ONE (13:08)
[2018-02-09] MEDS: BUDESONIDE NEB 0.5 MG/2 ML AMPUL NEB SCH ×2 (15:03→20:29)
[2018-02-09] MEDS: IPRATROPIUM BROMIDE 0.02% NEB 0.5 MG/2.5 ML AMPUL NEB SCH (16:30)
[2018-02-09] MEDS: LEVALBUTEROL HCL NEB 1.25 MG/3 ML AMPUL NEB SCH (16:30)
[2018-02-10] MEDS: LEVALBUTEROL HCL NEB 1.25 MG/3 ML AMPUL NEB SCH ×2 (00:27→08:56)
[2018-02-10] MEDS: IPRATROPIUM BROMIDE 0.02% NEB 0.5 MG/2.5 ML AMPUL NEB SCH ×2 (00:27→08:56)
[2018-02-10 06:23] LABS: ABSOLUTE LYMPHOCYTES (AUTO) 1.3 10^3/uL (0.5-4.7); ABSOLUTE MONOCYTES (AUTO) 0.6 10^3/uL (0.1-1.4); ABSOLUTE NEUT (AUTO) 10.8 10^3/uL (1.7-8.2); BASOPHILS % (AUTO) 0.3 % (0-2); HEMATOCRIT 37.3 % (36.0-47.0); HEMOGLOBIN 12.6 g/dL (12.0-15.5); LYMPHOCYTES % (AUTO) 10.3 % (13-45); MEAN CORPUSCULAR HEMOGLOBIN 29.4 pg (27.0-33.4); MEAN CORPUSCULAR HGB CONC 33.7 g/dL (32.0-36.0); MEAN CORPUSCULAR VOLUME 87 fl (80-97); MONOCYTES % (AUTO) 4.5 % (3-13); PLATELET COUNT 261 10^3/uL (150-450); RED BLOOD COUNT 4.27 10^6/uL (3.72-5.28); RED CELL DISTRIBUTION WIDTH 13.1 % (11.5-14.0); SEGMENTED NEUTROPHILS % (AUTO) 84.9 % (42-78); TOTAL CELLS COUNTED % (AUTO) 100 %; WHITE BLOOD COUNT 12.7 10^3/uL (4.0-10.5)
[2018-02-10 06:46] LABS: ANION GAP 9 (5-19); BLOOD UREA NITROGEN 17 mg/dL (7-20); CALCIUM 10.2 mg/dL (8.4-10.2); CARBON DIOXIDE 24 mmol/L (22-30); CHLORIDE 109 mmol/L (98-107); GLUCOSE 121 mg/dL (75-110); POTASSIUM 4.5 mmol/L (3.6-5.0); SODIUM 141.8 mmol/L (137-145)
[2018-02-10] MEDS: BUDESONIDE NEB 0.5 MG/2 ML AMPUL NEB SCH (08:56)
[2018-02-10] MEDS: PREDNISONE 20 MG TABLET PO SCH (09:14)
[2018-02-10] MEDS: FLUTICASONE NASAL SPRAY 50 MCG/SPRY 120 SPRAY/16 GM NASL SCH (09:14)
[2018-02-10] MEDS ORDERED: LEVOFLOXACIN 750 MG TABLET PO SCH (10:00)
[2018-02-10 13:05] VITALS: BP 114/64
--- NOTE | 2018-02-10 16:51 | PDOC DISCHARGE SUMMARY ---
General - Admit/Disc Date/PCP Admission Date/Primary Care Provider: 02/07/18 20:49 Discharge Date: 02/10/18 - Discharge Diagnosis (1) COPD exacerbation Is this a current diagnosis for this admission?: Yes Summary: Patient was admitted with acute exacerbation of COPD treated with supplemental O2, IV fluids, aggressive pulmonary toilet, IV steroids followed by oral steroids, and IV antibiotics followed by oral antibiotics. She responded very well to her aggressive treatment and had an excellent resolution of her symptoms. Her regimen was converted to an all oral regiment and she no longer required oxygen support she was discharged home in improved and stable condition. (2) Venous thromboembolism (VTE) prophylaxis not tolerated by patient Is this a current diagnosis for this admission?: Yes Summary: Sofie complained of having an inordinate amount of pain when she received her heparin shots 3 times a day. She volunteered to become exceptionally active if she could avoid getting the shots though she would still use the leg compression devices. Her wishes were granted and the heparin was discontinued in favor of her increased activity. This was maintained throughout the remainder of her hospital course. - Additional Information Resuscitation Status: Full Code Discharge Diet: Regular, Cardiac Discharge Activity: Activity As Tolerated, Walk Frequently, Other Prescriptions: Fluconazole [Diflucan 100 mg Tablet] 200 mg PO PCBRKFST 1 Days #2 tablet Levofloxacin [Levaquin 750 mg Tablet] 750 mg PO PCBRKFST 1 Days #1 tablet Prednisone [Deltasone 20 mg Tablet] 40 mg PO PCBRKFST 1 Days #2 tablet Home Medications: Lisinopril/Hydrochlorothiazide [Lisinopril-Hctz 20-12.5 mg Tab] 1 each PO DAILY 06/04/14 Aspirin [Aspirin EC] 81 mg PO DAILY 02/08/18 Cetirizine HCl [Zyrtec 10 mg Tablet] 10 mg PO DAILYP PRN 02/08/18 Multivit-Minerals/Folic Acid [One-A-Day Vitacraves Gummies] 200 mcg PO DAILY 05/28 Fluconazole [Diflucan 100 mg Tablet] 200 mg PO PCBRKFST 1 Days #2 tablet Levofloxacin [Levaquin 750 mg Tablet] 750 mg PO PCBRKFST 1 Days #1 tablet Prednisone [Deltasone 20 mg Tablet] 40 mg PO PCBRKFST 1 Days #2 tablet 02/10/18 History of Present Illness Patient complains of: Dyspnea History of Present Illness: SOFIE BULLOCK is a 57 year old female who presented with a 36 hour history of shortness of breath, fever, productive cough with copious amounts of yellow sputum. In the emergency room she was found to have leukocytosis, tachycardia and shortness of breath with a productive cough. She admitted to postnasal drip , but denied recent antibiotics. She received albuterol, Atrovent and antibiotics prior to admission in the ER. Hospital Course Hospital Course: 02/09/18: Today Sofie is feeling better but still not breathing easily. Would like to be more active and ambulate and she feels that would help her some and she thinks that the breathing treatments also help. She will be given a larger dose of steroids utilizing 125 milligrams dosage of Solu-Medrol IV x1 today and her pulmonary toilet will be adjusted to levalbuterol and ipratropium every 8 hours with as needed albuterol every hour. We will discontinue her anticoagulant medication for VTE prophylaxis since she is willing to ambulate. 02/10/18: Sofie feels considerably better today and that she feels she is back to near her baseline. She has been able to ambulate in the espinal and be up and around in the room without use of oxygen and without developing dyspnea. She continues to be without fever or chills and her rhinorrhea as well as her cough has resolved. She is asking if she can be discharged today and I have consented to do so. Physical Exam Vital Signs: Temp Pulse Resp BP Pulse Ox 98.3 F 77 20 114/64 96 02/10/18 13:03 02/10/18 13:03 02/10/18 13:03 02/10/18 13:03 02/10/18 13:03 Pulse Oximeter Continuous Start: 02/07/18 20: 26 Freq: RTQ4 Status: Discharge Document 02/10/18 12:00 [facility] (Rec: 02/10/18 12:35 [facility] [id number]) Pulse Oximetry Assessment Oxygen Saturation (92-100) 96 Oxygen Delivery Method Room Air Fraction of Inspired Oxygen (FIO2) 21 Equipment Usage Equipment in Use Continuous SpO2 Machine # 8 Intake & Output 02/09/18 02/10/18 02/11/18 06:59 06:59 06:59 Intake Total 1636 909 357 Output Total 800 Balance 836 909 357 Weight 78.4 kg 77.8 kg General appearance: PRESENT: no acute distress, cooperative Head exam: PRESENT: atraumatic, normocephalic Eye exam: PRESENT: conjunctiva pink, EOMI. ABSENT: conjunctival injection, nystagmus, periorbital swelling, scleral icterus Ear exam: PRESENT: normal external ear exam. ABSENT: bleeding, drainage Mouth exam: PRESENT: moist, tongue midline Neck exam: ABSENT: thyromegaly, tracheal deviation Respiratory exam: PRESENT: symmetrical, unlabored, wheezes - Minimal end expiratory wheezes are noted. ABSENT: accessory muscle use, prolonged expiratory phas, rales, retraction, rhonchi, stridor Cardiovascular exam: PRESENT: RRR. ABSENT: bradycardia, clicks, diastolic murmur, gallop, rubs, systolic murmur, tachycardia Vascular exam: PRESENT: normal capillary refill. ABSENT: pallor GI/Abdominal exam: PRESENT: normal bowel sounds, soft Rectal exam: PRESENT: deferred Extremities exam: ABSENT: joint swelling, tenderness Musculoskeletal exam: PRESENT: full ROM, normal inspection Neurological exam: PRESENT: alert, oriented to person, oriented to place, oriented to time, oriented to situation, CN II-XII grossly intact. ABSENT: motor sensory deficit Psychiatric exam: PRESENT: appropriate affect, normal mood Skin exam: ABSENT: jaundice, rash, urticaria Results Laboratory Results: 02/10/18 05:34 02/10/18 05:34 02/10/18 02/10/18 05:34 05:34 WBC 12.7 H RBC 4.27 Hgb 12.6 Hct 37.3 MCV 87 MCH 29.4 MCHC 33.7 RDW 13.1 Plt Count 261 Seg Neutrophils % 84.9 H Lymphocytes % 10.3 L Monocytes % 4.5 Eosinophils % 0.0 Basophils % 0.3 Absolute Neutrophils 10.8 H Absolute Lymphocytes 1.3 Absolute Monocytes 0.6 Absolute Eosinophils 0.0 Absolute Basophils 0.0 Sodium 141.8 Potassium 4.5 Chloride 109 H Carbon Dioxide 24 Anion Gap 9 BUN 17 Creatinine 0.66 Est GFR ( Amer) > 60 Est GFR (Non-Af Amer) > 60 Glucose 121 H Calcium 10.2 02/08/18 04:00 Sputum Gram Stain - Final 02/08/18 04:00 Sputum Sputum Culture - Final NORMAL KIMMY Impressions: Chest X-Ray 02/07/18 18:20 IMPRESSION: NO ACUTE FINDINGS. Qualifiers - * PATIENT BEING DISCHARGED WITH ANY OF THE FOLLOWING DIAGNOSIS: No Plan Discharge Plan: Discharged home in improved and stable condition Time Spent: Greater than 30 Minutes
== END 2018-02-10 14:18 | disposition home or self-care (01) | DRG 192 ==
LOC: ER 18:03 → EH 20:49 → 3S 02-08 02:45
PROVIDERS: ADMIT Internal Medicine; ATTEND Internal Medicine
DX: J44.1 Chronic obstructive pulmonary disease with (acute) exacerbation (principal); F17.210 Nicotine dependence, cigarettes, uncomplicated; J32.0 Chronic maxillary sinusitis; F32.9 Major depressive disorder, single episode, unspecified; I10 Essential (primary) hypertension; Z98.51 Tubal ligation status; Z88.0 Allergy status to penicillin; Z79.899 Other long term (current) drug therapy
CPT/HCPCS: 36415; 71046; 80048; 80053; 82803; 83605; 83880; 84484; 85025; 85379; 87040; 87070; 87205; 90686; 94640; 94667; 94668; 94762; 94799; 96365; 96375; 99285; J1644; J1885; J1956; J2930; J3490; J7512; J7620

== ENCOUNTER 2019-08-01 05:44 | Emergency (ER) | payer BC ==
[2019-08-01] MEDS ORDERED: ONDANSETRON HCL INJ/PF 4 MG/2 ML SDV IV ONE ×2 (06:15→08:48)
[2019-08-01 06:35] LABS: ABSOLUTE EOSINOPHILS # (AUTO) 0.1 10^3/uL (0.0-0.6); ABSOLUTE LYMPHOCYTES (AUTO) 4.5 10^3/uL (0.5-4.7); ABSOLUTE MONOCYTES (AUTO) 0.6 10^3/uL (0.1-1.4); ABSOLUTE NEUT (AUTO) 4.1 10^3/uL (1.7-8.2); BASOPHILS % (AUTO) 0.4 % (0-2); EOSINOPHILS % (AUTO) 1.4 % (0-6); HEMATOCRIT 42.7 % (36.0-47.0); HEMOGLOBIN 14.5 g/dL (12.0-15.5); LYMPHOCYTES % (AUTO) 48.5 % (13-45); MEAN CORPUSCULAR HEMOGLOBIN 30.2 pg (27.0-33.4); MEAN CORPUSCULAR HGB CONC 33.8 g/dL (32.0-36.0); MEAN CORPUSCULAR VOLUME 89 fl (80-97); MONOCYTES % (AUTO) 6.1 % (3-13); PLATELET COUNT 272 10^3/uL (150-450); RED BLOOD COUNT 4.79 10^6/uL (3.72-5.28); RED CELL DISTRIBUTION WIDTH 12.9 % (11.5-14.0); SEGMENTED NEUTROPHILS % (AUTO) 43.6 % (42-78); TOTAL CELLS COUNTED % (AUTO) 100 %; WHITE BLOOD COUNT 9.3 10^3/uL (4.0-10.5)
[2019-08-01 06:46] LABS: ALBUMIN 4.5 g/dL (3.5-5.0); ALKALINE PHOSPHATASE 68 U/L (38-126); ANION GAP 8 (5-19); ASPARTATE AMINO TRANSFERASE 65 U/L (14-36); BILIRUBIN,DIRECT 0.3 mg/dL (0.0-0.4); BILIRUBIN,TOTAL 0.3 mg/dL (0.2-1.3); BLOOD UREA NITROGEN 24 mg/dL (7-20); CALCIUM 10.1 mg/dL (8.4-10.2); CARBON DIOXIDE 32 mmol/L (22-30); CHLORIDE 102 mmol/L (98-107); CREATINE KINASE 48 U/L (30-135); GLUCOSE 163 mg/dL (75-110); POTASSIUM 3.8 mmol/L (3.6-5.0); TOTAL PROTEIN 7.8 g/dL (6.3-8.2)
[2019-08-01 06:59] LABS: CREATINE KINASE MB 0.36 ng/mL (<4.55); TROPONIN I < 0.012 ng/mL
--- NOTE | 2019-08-01 07:21 | EKG REPORT ---
SEVERITY:- NORMAL ECG - SINUS RHYTHM : Confirmed by: Denys Perez MD 01-Aug-2019 07:21:20
--- NOTE | 2019-08-01 07:22 | RADIOLOGY REPORT (SQ) ---
AP Portable chest: 08/01/2019 6:20 AM CDT History: 58-year old patient with chest pain. Comparison: Chest radiograph performed 08/01/2019. Findings: The cardiomediastinal silhouette is normal in size. No pneumothorax is seen. No acute airspace opacities are seen. No discrete pleural effusion is apparent. Impression: No acute airspace opacities are seen.
--- NOTE | 2019-08-01 08:09 | ER Document Report ---
ED General - General Chief Complaint: Abdominal Pain Stated Complaint: CHEST PAINS,SHORTNESS OF BREATH Time Seen by Provider: 08/01/19 08:02 Mode of Arrival: Ambulatory Information source: Patient Notes: 58-year-old female with history of reflux depression prediabetic presents to the emergency department with complaints of epigastric pain. She reports pain started approximately 4:00 this morning. She reports epigastric pain that radiates to her left quadrant and into her back. She reports she vomited one time at home and then 3 times here. She reports she feels little bit better after she vomits. She denies fever nausea reports a little bit of diarrhea. Reports she did have reflux 8 to 9 years ago. She reports she was placed on Prilosec for 3 months and felt better has not taken it since that time. TRAVEL OUTSIDE OF THE [place] IN LAST 30 DAYS: No - HPI Onset: This morning Onset/Duration: Sudden Quality of pain: Achy Associated symptoms: Vomiting Exacerbated by: Denies Relieved by: Denies Similar symptoms previously: No Recently seen / treated by doctor: No - Related Data Allergies/Adverse Reactions: amoxicillin Allergy (Verified 02/08/18 09:57) Hives hydrocodone bitartrate [From Vicodin] Adverse Reaction (Verified 02/08/18 09:57) Vomiting Past Medical History - General Information source: Patient - Social History Smoking Status: Current Every Day Smoker Cigarette use (# per day): Yes Frequency of alcohol use: Social Drug Abuse: None Occupation: taxicab driver Lives with: Family - Family History: Hypertension Patient has suicidal ideation: No Patient has homicidal ideation: No - Past Medical History Cardiac Medical History: Reports: Hx Hypertension Pulmonary Medical History: Reports: Hx Bronchitis Endocrine Medical History: Reports: Hx Diabetes Mellitus Type 2 - Prediabetic Renal/ Medical History: Denies: Hx Peritoneal Dialysis Psychiatric Medical History: Reports: Hx Depression Past Surgical History: Reports: Hx Gynecologic Surgery - tubes tied, Hx Tonsillectomy, Hx Tubal Ligation - Immunizations Hx Diphtheria, Pertussis, Tetanus Vaccination: Yes Review of Systems - Review of Systems Notes: Review HPI for review of systems., All other systems negative Physical Exam - Vital signs Vitals: Pulse Ox 98 08/01/19 05:51 - General General appearance: Alert, Anxious In distress: None - HEENT Head: Normocephalic, Atraumatic Eyes: Normal Conjunctiva: Normal Extraocular movements intact: Yes Pupils: PERRL Ears: Normal External canal: Normal Tympanic membrane: Normal Mouth/Lips: Normal Mucous membranes: Normal, Moist Pharynx: Normal. No: Erythema Neck: Normal, Supple. No: Lymphadenopathy - Respiratory Respiratory status: No respiratory distress Chest status: Nontender Breath sounds: Normal Chest palpation: Normal - Cardiovascular Rhythm: Regular Heart sounds: Normal auscultation Murmur: No - Abdominal Inspection: Normal Distension: No distension Bowel sounds: Normal Tenderness: Tender - Epigastric and right upper quad tender to palpate Organomegaly: No organomegaly - Back Back: Normal, Nontender. No: CVA tenderness, Vertebra tenderness - Extremities General upper extremity: Normal inspection General lower extremity: Normal inspection, Normal ROM, Normal strength. No: Edema - Neurological Neuro grossly intact: Yes Cognition: Normal Orientation: AAOx4 [place] Coma Scale Eye Opening: Spontaneous [place] Coma Scale Verbal: Oriented [place] Coma Scale Motor: Obeys Commands [place] Coma Scale Total: 15 Speech: Normal Cranial nerves: Normal - Psychological Associated symptoms: Normal affect, Normal mood - Skin Skin Temperature: Warm Skin Moisture: Dry Skin Color: Normal Course - Re-evaluation Re-evalutation: 08/01/19 09:29 58-year-old female presents with epigastric pain started this morning around 0400. She reports she vomited once at home 3 times here. Patient complains of epigastric and right upper quad abdominal pain with palpation. Labs have been ordered, a gallbladder ultrasound and GI cocktail were added. 08/01/19 12:40 Patient reports she is feeling much better. She received a GI cocktail. Patient reports her throat felt kind of numb but she was relieved the pain for little bit. patient has a history of reflux. She reported last night she ate dinner and then later that night she had some more food instead of fruit, a shrimp recipe. It is possible her reflux flared up from this. She was instructed on the importance of monitoring her diet avoid spicy foods and heavy large meals. She is drinking PO fluids. No abdominal pain at this time. Her labs unremarkable. I am concerned about lesion noted on the liver via CT and ultrasound. Patient was instructed on this lesion and the need for a biopsy. She was given a copy of all her labs and radiology exam results. She was instructed on the importance of follow-up with her primary care at [facility] for possible GI referral as well as scheduled for the biopsy. She verbalized understanding to all instructions. Abdomen Ultrasound 08/01/19 08:28 IMPRESSION: 1. Small liver lesion not a benign cyst. Will need further characterization with dedicated liver CT or MRI. 2. Mild gallbladder distention which may be physiologic. No gallstones or inflammatory changes. Abdomen/Pelvis CT 08/01/19 10:47 IMPRESSION: Indeterminate lesion in the falciform ligament. Suspect ectopic liver tissue, however other rare tumors are in the differential. There is also higher incidence of malignancy within ectopic liver tissue. Further imaging will not likely alter the differential. Consider CT-guided biopsy. Laboratory 08/01/19 08/01/19 08/01/19 06:13 06:13 06:13 WBC 9.3 RBC 4.79 Hgb 14.5 Hct 42.7 MCV 89 MCH 30.2 MCHC 33.8 RDW 12.9 Plt Count 272 Lymph % (Auto) 48.5 H [place]oll[place] % (Auto) 6.1 Eos % (Auto) 1.4 Baso % (Auto) 0.4 Absolute Neuts (auto) 4.1 Absolute Lymphs (auto) 4.5 Absolute Monos (auto) 0.6 Absolute Eos (auto) 0.1 Absolute Basos (auto) 0.0 Seg Neutrophils % 43.6 Sodium 142.1 Potassium 3.8 Chloride 102 Carbon Dioxide 32 H Anion Gap 8 BUN 24 H Creatinine 0.70 Est GFR ( Amer) > 60 Est GFR (Non-Af Amer) Est GFR (MDRD) Non-Af > 60 Glucose 163 H Calcium 10.1 Total Bilirubin 0.3 Direct Bilirubin 0.3 Neonat Total Bilirubin Not Reportable Neonat Direct Bilirubin Not Reportable Neonat Indirect Bili Not Reportable AST 65 H ALT 38 H Alkaline Phosphatase 68 Creatine Kinase 48 CK-MB (CK-2) 0.36 Troponin I < 0.012 Total Protein 7.8 Albumin 4.5 Lipase EGFR Urine Color Urine Appearance Urine pH Ur Specific [place] Urine Protein Urine Glucose (UA) Urine Ketones Urine Blood Urine Nitrite Urine Bilirubin Urine Urobilinogen Ur Leukocyte Esterase Urine WBC (Auto) Urine RBC (Auto) Squamous Epi Cells Auto Calcium Oxalate Cr Auto Uric Acid Cryst (Auto) Urine Mucus (Auto) Urine Ascorbic Acid 08/01/19 08/01/19 08/01/19 06:13 09:33 09:33 WBC RBC Hgb Hct MCV MCH MCHC RDW Plt Count Lymph % (Auto) [place]oll[place] % (Auto) Eos % (Auto) Baso % (Auto) Absolute Neuts (auto) Absolute Lymphs (auto) Absolute Monos (auto) Absolute Eos (auto) Absolute Basos (auto) Seg Neutrophils % Sodium Cancelled Potassium Cancelled Chloride Cancelled Carbon Dioxide Cancelled Anion Gap Cancelled BUN Cancelled Creatinine Cancelled Est GFR ( Amer) Cancelled Est GFR (Non-Af Amer) Cancelled Est GFR (MDRD) Non-Af Cancelled Glucose Cancelled Calcium Cancelled Total Bilirubin Cancelled Direct Bilirubin Cancelled Neonat Total Bilirubin Cancelled Neonat Direct Bilirubin Cancelled Neonat Indirect Bili Cancelled AST Cancelled ALT Cancelled Alkaline Phosphatase Cancelled Creatine Kinase CK-MB (CK-2) Troponin I < 0.012 Total Protein Cancelled Albumin Cancelled Lipase 96.0 EGFR Cancelled Urine Color YELLOW Urine Appearance SLIGHTLY-CLOUDY Urine pH 6.0 Ur Specific [place] 1.024 Urine Protein NEGATIVE Urine Glucose (UA) NEGATIVE Urine Ketones NEGATIVE Urine Blood NEGATIVE Urine Nitrite NEGATIVE Urine Bilirubin NEGATIVE Urine Urobilinogen 2.0 H Ur Leukocyte Esterase NEGATIVE Urine WBC (Auto) 4 Urine RBC (Auto) 7 Squamous Epi Cells Auto 3 Calcium Oxalate Cr Auto FEW Uric Acid Cryst (Auto) FEW Urine Mucus (Auto) RARE Urine Ascorbic Acid NEGATIVE - Vital Signs Vital signs: Temp Pulse Resp BP Pulse Ox 97.9 F 74 17 117/76 99 08/01/19 12:45 08/01/19 12:45 08/01/19 12:45 08/01/19 12:45 08/01/19 12:45 - Laboratory Result Diagrams: 08/01/19 06:13 08/01/19 06:13 Laboratory results interpreted by me: 08/01/19 08/01/19 08/01/19 06:13 06:13 09:33 Lymph % (Auto) 48.5 H Carbon Dioxide 32 H BUN 24 H Glucose 163 H AST 65 H ALT 38 H Urine Urobilinogen 2.0 H - Diagnostic Test Radiology reviewed: Image reviewed, Reports reviewed - EKG Interpretation by Me EKG shows normal: Sinus rhythm When compared to previous EKG there are: No significant change Additional EKG results interpreted by me: 08/01/19 09:[address] elevation no T wave inversion QTC 415 Discharge - Discharge Clinical Impression: Epigastric abdominal pain, Liver lesion Condition: Stable Disposition: HOME, SELF-CARE Instructions: Abdominal Pain ([facility]), Antinausea Medication ([facility]), Gastroenterology, Oral Narcotic Medication ([facility]), Prilosec (Acid Pump Inhibitor) ([facility]), Toradol Injection ([facility]) Additional Instructions: *You have been evaluated for epigastric abdominal pain, liver lesion *Take medication as prescribed for nausea, abdominal pain and acid reflex *Eat small meals. Clear liquids advance as tolerated. Avoid heavy meals avoid spicy foods *Follow up with your primary care provider within one week for referral for biopsy of the lesion on your liver and referral to GI for possible EGD as indicated. Take a copy of all your labs and radiology exams to your provider *Return to ED for worsening condition, changes, needs *Return to ED if not better in 24 hours Prescriptions: Oxycodone HCl/Acetaminophen [Percocet 5-325 mg Tablet] 1 tab PO ASDIR PRN #10 tablet PRN Reason: Omeprazole Magnesium [Prilosec Otc] 20 mg PO DAILY #30 tablet.dr Forms: Return to Work
[2019-08-01] MEDS ORDERED: MAG HYDROX/AL HYDROX/SIMETH SUSP 30 ML UDCUP PO ONE (08:28)
[2019-08-01] MEDS ORDERED: LIDOCAINE 2% VISCOUS SOLN 15 ML UDCUP PO ONE (08:28)
[2019-08-01] MEDS ORDERED: METOCLOPRAMIDE HCL ORAL SOLN 10 MG/10 ML UDCUP PO ONE (08:28)
--- NOTE | 2019-08-01 09:56 | RADIOLOGY REPORT (SQ) ---
EXAM DESCRIPTION: U/S ABDOMEN LIMITED W/O DOP COMPLETED DATE/TIME: 08/01/2019 9:25 am REASON FOR STUDY: ruq epigastric pain COMPARISON: None. TECHNIQUE: Dynamic and static grayscale images acquired of the abdomen and recorded on PACS. Additio nal selected color Doppler and spectral images recorded. LIMITATIONS: None. FINDINGS: PANCREAS: No masses. Visualized pancreatic duct normal caliber. LIVER: In the right lobe of the liver, 1.5 cm hypoechoic lesion with echogenic margins. LIVER VASCULATURE: Normal directional flow of the main portal vein and hepatic veins. GALLBLADDER: Mild distension 12.8 cm which may be physiologic. No stones. Normal wall thickness. No pericholecystic fluid. ULTRASOUND-DETECTED RODRIGUEZ'S SIGN: Negative. INTRAHEPATIC DUCTS AND COMMON DUCT: CBD and intrahepatic ducts normal caliber. No filling defects. INFERIOR VENA CAVA: Normal flow. AORTA: No aneurysm. RIGHT KIDNEY: Normal size. Normal echogenicity. No solid or suspicious masses. No hydronephrosis. No calcifications. PERITONEAL AND RIGHT PLEURAL SPACE: No ascites or effusions. OTHER: No other significant findings. IMPRESSION: 1. Small liver lesion not a benign cyst. Will need further characterization with dedicated liver CT or MRI. 2. Mild gallbladder distention which may be physiologic. No gallstones or inflammatory changes. TECHNICAL DOCUMENTATION: JOB ID: [id number] 2010 [employer]- All Rights Reserved Reading location - IP/workstation name: [email or web address]
[2019-08-01 10:05] LABS: APPEARANCE,URINE SLIGHTLY-CLOUDY; BILIRUBIN,URINE NEGATIVE (NEGATIVE); CALCIUM OXALATE CRYSTALS,URINE FEW /HPF; COLOR,URINE YELLOW; GLUCOSE, URINE NEGATIVE (NEGATIVE); KETONES,URINE NEGATIVE (NEGATIVE); LEUKOCYTE ESTERASE,URINE NEGATIVE (NEGATIVE); NITRITE,URINE NEGATIVE (NEGATIVE); PROTEIN,URINE NEGATIVE (NEGATIVE); URIC ACID CRYSTALS,URINE FEW /HPF; URINE SPECIFIC GRAVITY 1.024
--- NOTE | 2019-08-01 11:50 | RADIOLOGY REPORT (SQ) ---
EXAM DESCRIPTION: CT ABD/PELVIS WITH IV ONLY COMPLETED DATE/TIME: 08/01/2019 11:21 am REASON FOR STUDY: abd pain eval liver lesion COMPARISON: None. TECHNIQUE: CT scan of the abdomen and pelvis performed using helical scanning technique with dynamic intravenous contrast injection. No oral contrast. Images reviewed with lung, soft tissue, and bone windows. Reconstructed coronal and sagittal MPR images reviewed. Delayed images for evaluation of the urinary system also acquired. All images stored on PACS. All CT scanners at this facility use dose modulation, iterative reconstruction, and/or weight based d osing when appropriate to reduce radiation dose to as low as reasonably achievable (ALARA). [facility]: Dose Right [facility]: CareDose [facility]: Dose Right [facility]: Teradose 4D [facility]: [place] REI CONTRAST TYPE AND DOSE: contrast/concentration: Isovue 350.00 mg/ml; Total Contrast Delivered: 90.0 ml; Total Saline Delivered: 70.0 ml RENAL FUNCTION: GFR > 60. RADIATION DOSE: CT Rad equipment meets quality standard of care and radiation dose reduction techniq ues were employed. CTDIvol: 9.3 - 12.8 mGy. DLP: 1176 mGy-cm.. LIMITATIONS: None. FINDINGS: LOWER CHEST: No significant findings. No nodules or infiltrates. LIVER: Within the falciform ligament, there is a 10 mm well-circumscribed solid lesion which slightly higher in attenuation than the adjacent liver portal venous phase and appears similar to adjacent li natasha on delayed images. SPLEEN: Normal size. No focal lesions. PANCREAS: No masses. No significant calcifications. No adjacent inflammation or peripancreatic fluid collections. Pancreatic duct not dilated. GALLBLADDER: No identified stones by CT criteria. No inflammatory changes to suggest cholecystitis. ADRENAL GLANDS: No significant masses or asymmetry. RIGHT KIDNEY AND URETER: No solid masses. No significant calcifications. No hydronephrosis or hyd roureter. LEFT KIDNEY AND URETER: No solid masses. No significant calcifications. No hydronephrosis or hydr oureter. AORTA AND VESSELS: No aneurysm. No dissection. Renal arteries, SMA, celiac without stenosis. RETROPERITONEUM: No retroperitoneal adenopathy, hemorrhage or masses. BOWEL AND PERITONEAL CAVITY: No masses or inflammatory changes. No free fluid or peritoneal masses. APPENDIX: Normal. PELVIS: No mass. No free fluid. Normal bladder. ABDOMINAL WALL: Small fat containing umbilical hernia. BONES: No significant or acute findings. OTHER: No other significant finding. IMPRESSION: Indeterminate lesion in the falciform ligament. Suspect ectopic liver tissue, however o ther rare tumors are in the differential. There is also higher incidence of malignancy within ectopi c liver tissue. Further imaging will not likely alter the differential. Consider CT-guided biopsy. TECHNICAL DOCUMENTATION: JOB ID: [id number] Quality ID # [id number]: Final reports with documentation of one or more dose reduction techniques (e.g., Au tomated exposure control, adjustment of the mA and/or kV according to patient size, use of iterative reconstruction technique) 2010 [employer]- All Rights Reserved Reading location - IP/workstation name: [email or web address]
[2019-08-01] MEDS ORDERED: KETOROLAC TROMETHAMINE INJ/PF 30 MG/1 ML SDV IV ONE (11:58)
[2019-08-01] MEDS ORDERED: ONDANSETRON ODT 4 MG TAB (6 TAB/ER DISP) PO PRN (12:13)
[2019-08-01 12:45] VITALS: BP 117/76
== END 2019-08-01 12:45 | disposition home or self-care (01) ==
LOC: ER 05:44
DX: K76.9 Liver disease, unspecified (principal); R10.33 Periumbilical pain; F17.210 Nicotine dependence, cigarettes, uncomplicated; Z98.51 Tubal ligation status
CPT/HCPCS: 93005; 96376; 99285; 96374; 96375; 36415; 82553; 82550; 83690; 85025; 80053; 81001; 84484; 71045; 76705; 74177; 93010; J3490; J1885; J2405

== ENCOUNTER 2020-03-07 16:12 | Emergency (ER) | payer BC ==
--- NOTE | 2020-03-07 16:24 | ER Document Report ---
ED Medical Screen (RME) - General Chief Complaint: Chest Pain > 30 Stated Complaint: DIFFICULTY BLEEDING, DIZZINESS, LEG PAIN Time Seen by Provider: 03/07/20 16:17 Primary Care Provider: REGAN CARROLL MD [Primary Care Provider] - Follow up as needed Mode of Arrival: Wheelchair Information source: Patient Notes: 59-year-old female presents to ED for fluid retention short of breath and intermittent aching in her heart. She states she has been diagnosed with enlarged heart for the last 3 weeks and has been on Lasix. She is also on lisinopril. She states the pain today got so that she came to the emergency room to get examined. She states she has not heard of the terms congestive heart failure but she did get diagnosed with enlarged heart and peripheral edema . States the pain in her legs that is about a 3/5 and the pain in her heart comes and goes. I have greeted and performed a rapid initial assessment of this patient. A comprehensive ED assessment and evaluation of the patient, analysis of test results and completion of medical decision making process will be conducted by an additional ED providers. TRAVEL OUTSIDE OF THE [place] IN LAST 30 DAYS: No - Related Data Allergies/Adverse Reactions: amoxicillin Allergy (Verified 03/07/20 16:17) Hives hydrocodone bitartrate [From Vicodin] Adverse Reaction (Verified 03/07/20 16:17) Vomiting Past Medical History - Past Medical History Cardiac Medical History: Reports: Hx Hypertension Pulmonary Medical History: Reports: Hx Bronchitis Endocrine Medical History: Reports: Hx Diabetes Mellitus Type 2 - Prediabetic Renal/ Medical History: Denies: Hx Peritoneal Dialysis Psychiatric Medical History: Reports: Hx Depression Past Surgical History: Reports: Hx Gynecologic Surgery - tubes tied, Hx Tonsillectomy, Hx Tubal Ligation - Immunizations Hx Diphtheria, Pertussis, Tetanus Vaccination: Yes Physical Exam - Vital signs Vitals: Temp Pulse Resp BP Pulse Ox 98.6 F 87 17 106/66 96 03/07/20 16:19 03/07/20 16:19 03/07/20 16:19 03/07/20 16:19 03/07/20 16:19 Course - Vital Signs Vital signs: Temp Pulse Resp BP Pulse Ox 98.6 F 87 17 106/66 96 03/07/20 16:19 03/07/20 16:19 03/07/20 16:19 03/07/20 16:19 03/07/20 16:19 Doctor's Discharge - Discharge Referrals: REGAN CARROLL MD [Primary Care Provider] - Follow up as needed
--- NOTE | 2020-03-07 16:53 | RADIOLOGY REPORT (SQ) ---
EXAM DESCRIPTION: CHEST 2 VIEWS IMAGES COMPLETED DATE/TIME: 03/07/2020 4:42 pm REASON FOR STUDY: Intermittent chest pain, peripheral edema, sob COMPARISON: 08/01/2019. EXAM PARAMETERS: NUMBER OF VIEWS: two views TECHNIQUE: Digital Frontal and Lateral radiographic views of the chest acquired. RADIATION DOSE: NA LIMITATIONS: none FINDINGS: LUNGS AND PLEURA: No opacities, masses or pneumothorax. No pleural effusion. MEDIASTINUM AND HILAR STRUCTURES: No masses or contour abnormalities. HEART AND VASCULAR STRUCTURES: Heart normal size. No evidence for failure. BONES: No acute findings. HARDWARE: None in the chest. OTHER: No other significant finding. IMPRESSION: NO ACUTE RADIOGRAPHIC FINDING IN THE CHEST. TECHNICAL DOCUMENTATION: JOB ID: [id number] 2010 [employer]- All Rights Reserved Reading location - IP/workstation name: [email or web address]
[2020-03-07 17:14] LABS: ABSOLUTE EOSINOPHILS # (AUTO) 0.2 10^3/uL (0.0-0.6); ABSOLUTE LYMPHOCYTES (AUTO) 3.1 10^3/uL (0.5-4.7); ABSOLUTE MONOCYTES (AUTO) 0.6 10^3/uL (0.1-1.4); ABSOLUTE NEUT (AUTO) 5.8 10^3/uL (1.7-8.2); BASOPHILS % (AUTO) 0.4 % (0-2); EOSINOPHILS % (AUTO) 1.6 % (0-6); HEMATOCRIT 40.4 % (36.0-47.0); HEMOGLOBIN 13.5 g/dL (12.0-15.5); LYMPHOCYTES % (AUTO) 31.9 % (13-45); MEAN CORPUSCULAR HEMOGLOBIN 29.7 pg (27.0-33.4); MEAN CORPUSCULAR HGB CONC 33.4 g/dL (32.0-36.0); MEAN CORPUSCULAR VOLUME 89 fl (80-97); MONOCYTES % (AUTO) 6.2 % (3-13); PLATELET COUNT 294 10^3/uL (150-450); RED BLOOD COUNT 4.54 10^6/uL (3.72-5.28); RED CELL DISTRIBUTION WIDTH 13.1 % (11.5-14.0); SEGMENTED NEUTROPHILS % (AUTO) 59.9 % (42-78); TOTAL CELLS COUNTED % (AUTO) 100 %; WHITE BLOOD COUNT 9.7 10^3/uL (4.0-10.5)
[2020-03-07 17:35] LABS: ALBUMIN 4.4 g/dL (3.5-5.0); ALKALINE PHOSPHATASE 72 U/L (38-126); ANION GAP 12 (5-19); ASPARTATE AMINO TRANSFERASE 19 U/L (14-36); BILIRUBIN,DIRECT 0.1 mg/dL (0.0-0.4); BILIRUBIN,TOTAL 0.3 mg/dL (0.2-1.3); BLOOD UREA NITROGEN 24 mg/dL (7-20); CARBON DIOXIDE 26 mmol/L (22-30); CHLORIDE 102 mmol/L (98-107); GLUCOSE 100 mg/dL (75-110); TOTAL PROTEIN 7.3 g/dL (6.3-8.2)
[2020-03-07 17:49] LABS: NT PRO BNP < 11 pg/mL (<125); TROPONIN I < 0.012 ng/mL
--- NOTE | 2020-03-07 17:54 | EKG REPORT ---
SEVERITY:- NORMAL ECG - SINUS RHYTHM : Confirmed by: Denys Perez MD 07-Mar-2020 17:53:46
--- NOTE | 2020-03-07 19:08 | ER Document Report ---
ED General - General Chief Complaint: Leg Swelling Stated Complaint: DIFFICULTY BLEEDING, DIZZINESS, LEG PAIN Time Seen by Provider: 03/07/20 16:17 Primary Care Provider: REGAN CARROLL MD [ACTIVE STAFF] - Follow up as needed Mode of Arrival: Wheelchair TRAVEL OUTSIDE OF THE [place] IN LAST 30 DAYS: No - HPI Notes: 59-year female presents with leg swelling. Patient states that since Thursday she has had swelling in her legs which suggest her she is retaining fluid. She states she has been recently diagnosed with "an enlarged heart" via x-ray done through PCP, she was started on Lasix 20 mg, also takes lisinopril and hydrochlorothiazide. She has an upcoming cardiology appointment next week, she has not had an echo. Patient states that she took her usual dose of Lasix today, however she has only peed 4 times a day, there for she thinks it is not effective as she is still having swelling to her legs. She also reports she has gained 4 pounds since the weekend. She also reports that last night she had an episode of shortness of breath when she was lying down, described as a choking sensation. Saw she reports intermittent episodes of chest pain, states it is a funny sensation, occasionally like a sharp poke. She currently denies chest pa in now. She is otherwise been ambulatory. She reports her mother has a history of blood clots. - Related Data Allergies/Adverse Reactions: amoxicillin Allergy (Verified 03/07/20 16:17) Hives hydrocodone bitartrate [From Vicodin] Adverse Reaction (Verified 03/07/20 16:17) Vomiting Past Medical History - General Information source: Patient - Social History Smoking Status: Current Every Day Smoker Frequency of alcohol use: Rare Drug Abuse: None Family History: Hypertension - Past Medical History Cardiac Medical History: Reports: Hx Hypertension Pulmonary Medical History: Reports: Hx Bronchitis Endocrine Medical History: Reports: Hx Diabetes Mellitus Type 2 - Prediabetic Renal/ Medical History: Denies: Hx Peritoneal Dialysis Psychiatric Medical History: Reports: Hx Depression Past Surgical History: Reports: Hx Gynecologic Surgery - tubes tied, Hx Tonsillectomy, Hx Tubal Ligation - Immunizations Hx Diphtheria, Pertussis, Tetanus Vaccination: Yes Review of Systems - Review of Systems Constitutional: denies: Fever EENT: No symptoms reported Cardiovascular: denies: Chest pain - Denies currently Respiratory: denies: Short of breath - Denies currently Gastrointestinal: No symptoms reported Genitourinary: No symptoms reported Female Genitourinary: No symptoms reported Musculoskeletal: Leg swelling Skin: No symptoms reported Hematologic/Lymphatic: No symptoms reported Neurological/Psychological: No symptoms reported Physical Exam - Vital signs Vitals: Temp Pulse Resp BP Pulse Ox 98.6 F 87 17 106/66 96 03/07/20 16:19 03/07/20 16:19 03/07/20 16:19 03/07/20 16:19 03/07/20 16:19 - General General appearance: Appears well, Alert In distress: None - HEENT Head: Normocephalic, Atraumatic Extraocular movements intact: Yes Pupils: PERRL Neck: Other - No JVD - Respiratory Breath sounds: Normal. No: Rales - Cardiovascular Rhythm: Regular Heart sounds: Normal auscultation Pulses: Normal: Dorsalis pedis - Abdominal Inspection: Obese Tenderness: Nontender - Extremities General lower extremity: No: Tender, Edema - Neurological Neuro grossly intact: Yes Cognition: Normal Orientation: AAOx4 - Psychological Associated symptoms: Normal affect - Skin Skin Temperature: Warm Course - Re-evaluation Re-evalutation: 59-year-old female here with reports of leg swelling/fluid retention. Recently started on Lasix for cardiomegaly seen on chest x-ray, has upcoming cardiology appointment, no further work-up for CHF. Had some shortness of breath last night and intermittent chest pain, currently chest pain and shortness of breath free. On exam patient does not exhibit any signs of peripheral edema, her legs are quite skinny and can easily palpate bony prominences. No tenderness or erythema to legs. Lungs are clear, heart RRR. The triage process she had labs and chest x-ray. Labs are grossly unremarkable, including an undetectable BNP and troponin. Her chest x-ray does not have any cardiomegaly and does not show signs of edema. Her EKG is nonischemic. I discussed all of these results with patient and her . Although her legs are nonedematous, patient adamant that they are, I discussed we will give a small dose of IV Lasix to see if this symptomatically makes her feel better. She will also have ultrasound of her lower extremities to rule out DVT, low suspicion for this. Possible she is having dependent edema. 03/07/20 21:41 Ultrasound is negative for DVT 03/07/20 21:51 Patient was updated on ultrasound results and entire work-up was again rediscussed. She has remained hemodynamically stable without any signs of respiratory distress, oxygen 100% on room air. On further discussion patient states that she does smoke although she has a history of asthma. Discussed with her that potentially she is having bronchospastic events or irritation from smoking, smoking cessation was advised. I again encouraged her to please call follow-up with cardiology as planned. Return precautions given, patient stable at time of discharge. - Vital Signs Vital signs: Temp Pulse Resp BP Pulse Ox 98.6 F 87 22 H 99/61 L 100 03/07/20 16:19 03/07/20 16:19 03/07/20 21:31 03/07/20 21:31 03/07/20 21:31 - Laboratory Result Diagrams: 03/07/20 16:53 03/07/20 16:53 Laboratory results interpreted by me: 03/07/20 16:53 BUN 24 H Calcium 11.0 H - Diagnostic Test Radiology reviewed: Image reviewed, Reports reviewed - EKG Interpretation by Me Additional EKG results interpreted by me: EKG is interpreted by me. Normal sinus rhythm, rate 74. Narrow QRS, QTC within normal limits. No ST segment elevation or depression. Discharge - Discharge Clinical Impression: Shortness of breath Condition: Stable Disposition: HOME, SELF-CARE Instructions: Stop Smoking ([facility]) Additional Instructions: Please continue all medications as prescribed. Please follow-up with cardiology as planned peer return to the emergency department for any concerning worsening symptoms. Referrals: REGAN CARROLL MD [ACTIVE STAFF] - Follow up as needed
[2020-03-07] MEDS ORDERED: FUROSEMIDE INJ/PF 20 MG/2 ML SDV IV ONE (19:25)
[2020-03-07 21:35] VITALS: BP 99/61
--- NOTE | 2020-03-07 21:36 | RADIOLOGY REPORT (SQ) ---
EXAM DESCRIPTION: US EXTREMITY VEINS BILATERAL COMPLETED DATE/TME: 03/07/2020 19:24 CLINICAL HISTORY: 59 years, Female, b/l leg swelling, eval DVT COMPARISON: None. FINDINGS: Grayscale imaging and Doppler interrogation of the bilateral lower extremity venous systems demonstrate normal compressibility, augmentation, and respiratory variability within the common femoral vein, superficial femoral vein, and popliteal veins. The proximal deep veins of the upper calves appear grossly patent as well. IMPRESSION: No evidence for deep venous thrombosis as above. copyright 2010 [employer]- All Rights Reserved
== END 2020-03-07 22:00 | disposition home or self-care (01) ==
LOC: ER 16:12
DX: R06.02 Shortness of breath (principal); M79.89 Other specified soft tissue disorders; R42 Dizziness and giddiness; I51.7 Cardiomegaly; Z79.899 Other long term (current) drug therapy; Z88.0 Allergy status to penicillin; Z88.8 Allergy status to other drugs, medicaments and biological substances; F17.200 Nicotine dependence, unspecified, uncomplicated; I10 Essential (primary) hypertension; R73.03 Prediabetes
CPT/HCPCS: 93005; 99285; 96374; 36415; 83735; 85025; 80053; 84484; 83880; 93970; 71046; 93010; J1940

== ENCOUNTER 2020-04-28 14:45 | Emergency (ER) | payer OTHER, BC ==
[2020-04-28] MEDS ORDERED: TRAMADOL HCL 50 MG TABLET PO ONE (15:09)
--- NOTE | 2020-04-28 15:11 | ER Document Report ---
ED Medical Screen (RME) - General Chief Complaint: Low Back Pain Stated Complaint: FALL/WORK/LEG AND BACK PAIN Time Seen by Provider: 04/28/20 15:02 Mode of Arrival: Ambulatory Information source: Patient Notes: Patient presents complaining of tripping twice at work and almost falling. Patient states that she caught herself both times. Patient states that when she almost fell the second time that she felt something give in her back. Patient states that twice she is felt as though her legs are getting give out on her. Patient with lower lumbar tenderness. Patient states she has a history of back pain although the last episode was about 4 years ago. I have greeted and performed a rapid initial assessment of this patient. A comprehensive ED assessment and evaluation of the patient, analysis of test results and completion of the medical decision making process will be conducted by additional ED providers. TRAVEL OUTSIDE OF THE [place] IN LAST 30 DAYS: No - Related Data Allergies/Adverse Reactions: amoxicillin Allergy (Verified 04/28/20 14:58) Hives hydrocodone bitartrate [From Vicodin] Adverse Reaction (Verified 04/28/20 14:58) Vomiting Past Medical History - Past Medical History Cardiac Medical History: Reports: Hx Hypertension Pulmonary Medical History: Reports: Hx Bronchitis Endocrine Medical History: Reports: Hx Diabetes Mellitus Type 2 Renal/ Medical History: Denies: Hx Peritoneal Dialysis Psychiatric Medical History: Reports: Hx Depression Past Surgical History: Reports: Hx Gynecologic Surgery - tubes tied, Hx Tonsillectomy, Hx Tubal Ligation - Immunizations Hx Diphtheria, Pertussis, Tetanus Vaccination: Yes Physical Exam - Vital signs Vitals: Temp Pulse Resp BP Pulse Ox 97.4 F 81 18 114/73 96 04/28/20 14:54 04/28/20 14:54 04/28/20 14:54 04/28/20 14:54 04/28/20 14:54 - Back Back: Vertebra tenderness - Lower lumbar tenderness, lumbar paraspinal tenderness Course - Vital Signs Vital signs: Temp Pulse Resp BP Pulse Ox 97.4 F 81 18 114/73 96 04/28/20 14:54 04/28/20 14:54 04/28/20 14:54 04/28/20 14:54 04/28/20 14:54
[2020-04-28] MEDS ORDERED: ONDANSETRON 4 MG TAB.RAPDIS PO ONE (15:52)
--- NOTE | 2020-04-28 16:18 | RADIOLOGY REPORT (SQ) ---
EXAM DESCRIPTION: L SPINE WHOLE IMAGES COMPLETED DATE/TIME: 04/28/2020 3:37 pm REASON FOR STUDY: back pain COMPARISON: 03/20/2013 NUMBER OF VIEWS: Five views including obliques. TECHNIQUE: AP, lateral, oblique, and sacral radiographic images acquired of the lumbar spine. LIMITATIONS: None. FINDINGS: MINERALIZATION: Normal. SEGMENTATION: Normal. No transitional anatomy. ALIGNMENT: Normal. VERTEBRAE: Maintained height. No fracture or worrisome bone lesion. DISCS: Mild Multilevel disc space narrowing with osteophytes. POSTERIOR ELEMENTS: Pedicles and facets are intact. No pars defect or posterior arch defects. Facet arthropathy is present. HARDWARE: None in the spine. PARASPINAL SOFT TISSUES: Normal. PELVIS: Intact as visualized. No fractures or worrisome bone lesions. SI joints intact. OTHER: No other significant finding. IMPRESSION: No acute findings. TECHNICAL DOCUMENTATION: JOB ID: [id number] [place]-72 2010 [employer]- All Rights Reserved Reading location - IP/workstation name: [email or web address]
--- NOTE | 2020-04-28 16:46 | ER Document Report ---
HPI - HPI Patient complains to provider of: Low back pain Time Seen by Provider: 04/28/20 15:02 Onset: This afternoon Onset/Duration: Sudden Quality of pain: Achy Pain Level: 2 Context: Patient states that she was at work walking and tripped over a rug on 2 separate occasions. Patient states that each time she almost fell but was able to catch herself prior to falling. Patient states the second time she felt something pull in her low back. Patient complains of low back pain and anterior thigh tenderness. Patient without any urinary retention or incontinence. Associated Symptoms: Other - Low back pain. denies: Productive cough, Fever, Nausea, Vomiting Exacerbated by: Movement, Walking Relieved by: Denies Similar symptoms previously: No Recently seen / treated by doctor: No - ROS ROS below otherwise negative: Yes Systems Reviewed and Negative: Yes All other systems reviewed and negative - CONSTITUTIONAL Constitutional: DENIES: Fever - GASTROINTESTINAL Gastrointestinal: DENIES: Nausea - URINARY Urinary: DENIES: Dysuria - REPRODUCTIVE Reproductive: DENIES: : - MUSCULOSKELETAL Musculoskeletal: REPORTS: Extremity pain, Back Pain. DENIES: Neck Pain - DERM Skin Color: Normal Skin Problems: None Past Medical History - General Information source: Patient - Social History Smoking Status: Current Every Day Smoker Frequency of alcohol use: None Drug Abuse: None Occupation: Receiving Lives with: Family Family History: Hypertension - Past Medical History Cardiac Medical History: Reports: Hx Hypertension Pulmonary Medical History: Reports: Hx Asthma, Hx Bronchitis, Hx COPD Endocrine Medical History: Reports: Hx Diabetes Mellitus Type 2 Renal/ Medical History: Denies: Hx Peritoneal Dialysis Psychiatric Medical History: Reports: Hx Depression Past Surgical History: Reports: Hx Gynecologic Surgery - tubes tied, Hx Tonsillectomy, Hx Tubal Ligation - Immunizations Hx Diphtheria, Pertussis, Tetanus Vaccination: Yes Vertical Provider Document - CONSTITUTIONAL Agree With Documented VS: Yes Exam Limitations: No Limitations General Appearance: WD/WN, No Apparent Distress Notes: PHYSICAL EXAMINATION: GENERAL: Well-appearing, well-nourished and in no acute distress. HEAD: Atraumatic, normocephalic. EYES: sclera clear, anicteric, conjunctiva are normal. ENT: nares patent, Moist mucous membranes. NECK: Normal range of motion, supple LUNGS: respirations unlabored HEART: Regular rate and rhythm without murmurs EXTREMITIES: Normal range of motion, no pitting or edema. No cyanosis. Gait normal, pt ambulates without difficulty BACK: Lower lumbar paraspinal tenderness, lower lumbar midline tenderness, no deformities or step-offs. No CVA tenderness. NEUROLOGICAL: Cranial nerves grossly intact. Normal speech, normal gait. No saddle anesthesia. PSYCH: Normal mood, normal affect. SKIN: Warm, Dry, normal turgor, no rashes or lesions noted. - INFECTION CONTROL TRAVEL OUTSIDE OF THE [place] IN LAST 30 DAYS: No Course - Re-evaluation Re-evalutation: 04/28/20 The patient presents with low back pain without signs of spinal cord compression, cauda equina syndrome, infection, aneurysm, or other serious etiology. The patient is neurologically intact. Given the extremely risk of these diagnoses further testing and evaluation for these possibilities does not appear to be indicated at this time. Patient has been instructed to return if the symptoms worsen or change in any way. - Vital Signs Vital signs: Temp Pulse Resp BP Pulse Ox 97.4 F 81 18 114/73 96 04/28/20 14:54 04/28/20 14:54 04/28/20 14:54 04/28/20 14:54 04/28/20 14:54 - Laboratory Results Critical Laboratory Results Reviewed: No Critical Results - Radiology Results Critical Radiology Results Reviewed: No Critical Results Discharge - Discharge Clinical Impression: Nausea Low back pain Qualifiers: Chronicity: acute Back pain laterality: unspecified Sciatica presence: unspecified whether sciatica present Qualified Code(s): M54.5 - Low back pain Condition: Stable Disposition: HOME, SELF-CARE Instructions: Antinausea Medication ([facility]), Ice Packs ([facility]), Low Back Pain ([facility]), Nausea or Vomiting, Nonspecific ([facility]), Oral Narcotic Medication ([facility]) Additional Instructions: Return immediately for any new or worsening symptoms Follow-up with your Workmen's Compensation provider on Thursday as planned, they will provide you with clearance for when it is safe to return to work Follow-up with orthopedics for any persistent pain or problems Prescriptions: Lidocaine [Lidoderm 5% (700 mg) Transdermal Patch] 1 patch TP DAILY PRN #10 adh..patch PRN Reason: Oxycodone HCl/Acetaminophen [Percocet 5-325 mg Tablet] 1 tab PO ASDIR PRN #12 tablet PRN Reason: Ondansetron [Zofran Odt 4 mg Tablet] 1 tab PO Q6H #15 tab.rapdis Forms: Return to Work Referrals: [facility] [Provider Group] - Follow up as needed
[2020-04-28 17:15] VITALS: BP 118/69
== END 2020-04-28 16:45 | disposition home or self-care (01) ==
LOC: ER 14:45
DX: M54.5 Low back pain (principal); M79.606 Pain in leg, unspecified; W18.49XA Other slipping, tripping and stumbling without falling, initial encounter; Y99.0 Civilian activity done for income or pay; R11.0 Nausea; F17.200 Nicotine dependence, unspecified, uncomplicated; I10 Essential (primary) hypertension; J44.9 Chronic obstructive pulmonary disease, unspecified; E11.9 Type 2 diabetes mellitus without complications; Z88.0 Allergy status to penicillin
CPT/HCPCS: 99284; 72110; S0119